=== PATIENT | female | born 1950 | race Caucasian/White ===

== ENCOUNTER 2020-07-14 11:31 | Inpatient (IN) | payer OTHER, MEDICARE ==
[2020-07-14] MEDS ORDERED: Albuterol/Ipratropium 3.0-0.5 MG/3 ML Neb Soln INH PRN (15:49)
[2020-07-14] MEDS ORDERED: Albuterol 8 GM Inhaler INH PRN (16:04)
[2020-07-14] MEDS: Carvedilol 12.5 MG Tab PO SCH (18:10)
--- NOTE | 2020-07-14 19:33 | HP ---
HISTORY OF PRESENT ILLNESS: Meryl is a pleasant 69-year-old female who has been hospitalized at [facility] in [place], [place] since 05/24/2020. She was discharged today for further rehabilitation in swing bed care. The patient has had quite a complicated course of illness. She was admitted and brought to the ER due to severely low oxygen saturations. She was recently exposed to COVID prior to her admission and tested positive for five days before that. She called EMS due to increasing shortness of breath. Initially, her oxygen saturation was in the 30s per EMS, but improved to the 70 range with a 15 L nonrebreather mask. She was diaphoretic and in respiratory distress on arrival to the emergency room. She reported a cough and dyspnea, but denied any chest pain. She was placed on BiPAP. She has one brother in [place] who was COVID positive and required ventilation, and she had another brother who 10 days prior to her admission of COVID. Some records are available for review and I will do my best to piece them together. The patient had acute hypoxemic respiratory failure secondary to COVID-19 pneumonia in combination with bacterial pneumonia. She also sustained a non-STEMI. She had an echocardiogram on 05/31/2020, which showed moderate to severely reduced left ventricular systolic function with an ejection fraction of 30%. She had severe hypokinesis of the anterior, anteroseptal, anterolateral, and apical wall. The echo findings were consistent with grade 3 or 4 diastolic dysfunction and an E:E prime ratio of greater than 15, consistent with elevated left heart filling pressures. She was treated with aspirin and Plavix and was placed on a heparin drip. So, she was diagnosed also with acute cardiomyopathy. She does have a history of hypertension, hyperlipidemia. She was found to be anemic on the date of admission with a hemoglobin of 7.8. She had an upper GI endoscopy due to a past history of gastric ulcers and was found to have multiple antral ulcers. She did have a repeat EGD in October and found to have a persistent antral ulcer. Apparently, her hemoglobin was stable on admission. The low hemoglobin of 7.8 was actually on 06/23/2020. Due to her COVID pneumonia and acute hypoxemic respiratory failure, she did qualify for remdesivir. I am unclear according to her medical records if she was treated with steroids. When I walked into the room today, the patient is on oxygen therapy. She does seem to be somewhat short of breath, however, she describes it as being much better than it was in the past. For her COVID pneumonia with superimposed bacterial pneumonia, she does use albuterol per nebulizer. She has a p.r.n. benzonatate for cough. She also receives DuoNeb as needed. She has gastroesophageal reflux disease with history of gastric ulcer and is taking omeprazole. She is on a multivitamin. She does have hypertension and is taking losartan in addition to hydrochlorothiazide. She has iron-deficiency anemia and is taking ferrous sulfate. She also has vitamin B12 deficiency and is receiving oral vitamin B12 supplementation. She has vitamin D deficiency and is taking calcium with vitamin D and additional vitamin D supplement. She is also taking ascorbic acid. She has been on enoxaparin for DVT prophylaxis. She is also on clopidogrel. For her cardiomyopathy, she is on carvedilol. She has hypercholesterolemia and is taking atorvastatin. She is on a daily aspirin regimen. REVIEW OF SYSTEMS: She denies any recent fever, headache, visual disturbances, ear pain, sore throat, chest pain, or palpitations. She does admit to having shortness of breath, which has greatly improved from the past. No abdominal pain, nausea, vomiting, diarrhea, or constipation. 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 No other orthopedic issues. PHYSICAL EXAMINATION: VITAL SIGNS: She is afebrile. Temp is 98.8, pulse is 99, respirations 22, blood pressure 99/67, O2 saturation is 87% to 92% on 7 L of oxygen per nasal cannula. SKIN: Warm and dry to touch. HEENT: Normal. CARDIAC: Reveals S1, S2 to be normal. Rate and rhythm are regular. No murmur, click, or gallop is auscultated. LUNGS: Clear without any rales, wheezes, or rhonchi. ABDOMEN: Soft, nontender. Bowel sounds present in all four quadrants. 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 IMPRESSION/PLAN: 1. Weakness secondary to coronavirus disease pneumonia an extended hospital stay and then a secondary bacterial pneumonia. She is being admitted today to receive physical therapy with an ultimate goal of returning home. 2. Non-ST elevation myocardial infarction with cardiomyopathy. She will continue on carvedilol. 3. Hypercholesterolemia, on statin. 4. DVT prophylaxis with some concern initially on her hospital admission for pulmonary embolism, which was ruled out, but she is on enoxaparin as well as clopidogrel and aspirin. 5. Shortness of breath. She is receiving albuterol as well as DuoNeb and benzonatate for cough. 6. She has hypertension and is taking losartan as well as hydrochlorothiazide. She is on multiple oral supplements including vitamin B12, vitamin C, vitamin D and calcium. We will continue these. She will continue on omeprazole for GI protection. PT has been consulted and will work with her to hopefully get her strong enough to return home to independent living. /[id number]/MODL
[2020-07-14] MEDS: Enoxaparin 40 MG/0.4 ML Syringe SUBCUT SCH (21:32)
[2020-07-14] MEDS: atorvaSTATin 40 MG Tab PO SCH (21:33)
[2020-07-14] MEDS: Chondroitin/Glucosamine Cap PO SCH (21:33)
[2020-07-14] MEDS: Benzonatate 100 MG Cap PO SCH (21:33)
[2020-07-15] MEDS: Cholecalciferol (Vitamin D3) 25 MCG Tab PO SCH (08:32)
[2020-07-15] MEDS: Hydrochlorothiazide 12.5 MG Cap PO SCH (08:32)
[2020-07-15] MEDS: Calcium Carbonate 600 MG Tab PO SCH (08:32)
[2020-07-15] MEDS: Ferrous Sulfate 325 MG Tab PO SCH (08:33)
[2020-07-15] MEDS: Chondroitin/Glucosamine Cap PO SCH ×2 (08:33→20:53)
[2020-07-15] MEDS: Multivitamins with Minerals/Iron/Folic Acid/Lycopene Tab PO SCH (08:33)
[2020-07-15] MEDS: Carvedilol 12.5 MG Tab PO SCH ×2 (08:33→17:12)
[2020-07-15] MEDS: Ascorbic Acid 500 MG Tab PO SCH (08:33)
[2020-07-15] MEDS: Benzonatate 100 MG Cap PO SCH ×2 (08:34→20:53)
[2020-07-15] MEDS: Clopidogrel 75 MG Tab PO SCH (08:34)
[2020-07-15] MEDS: Losartan 25 MG Tab PO SCH (08:34)
[2020-07-15] MEDS: Aspirin 81 MG Tab.EC PO SCH (08:34)
[2020-07-15] MEDS: Enoxaparin 40 MG/0.4 ML Syringe SUBCUT SCH ×2 (08:35→20:53)
[2020-07-15] MEDS: Omeprazole 20 MG Cap.CR PO SCH (08:42)
[2020-07-15] MEDS: Cyanocobalamin (Vitamin B12) 500 MCG Tab PO SCH (08:43)
[2020-07-15] MEDS ORDERED: Omeprazole 20 MG Cap.CR PO SCH (09:00)
[2020-07-15] MEDS: atorvaSTATin 40 MG Tab PO SCH (20:53)
[2020-07-16] MEDS: Omeprazole 20 MG Cap.CR PO SCH ×2 (06:01→06:30)
[2020-07-16] MEDS: Chondroitin/Glucosamine Cap PO SCH ×2 (09:01→20:43)
[2020-07-16] MEDS: Clopidogrel 75 MG Tab PO SCH (09:02)
[2020-07-16] MEDS: Cholecalciferol (Vitamin D3) 25 MCG Tab PO SCH (09:02)
[2020-07-16] MEDS: Aspirin 81 MG Tab.EC PO SCH (09:02)
[2020-07-16] MEDS: Hydrochlorothiazide 12.5 MG Cap PO SCH (09:02)
[2020-07-16] MEDS: Carvedilol 12.5 MG Tab PO SCH ×2 (09:02→17:57)
[2020-07-16] MEDS: Multivitamins with Minerals/Iron/Folic Acid/Lycopene Tab PO SCH (09:02)
[2020-07-16] MEDS: Benzonatate 100 MG Cap PO SCH ×2 (09:02→20:43)
[2020-07-16] MEDS: Losartan 25 MG Tab PO SCH (09:03)
[2020-07-16] MEDS: Calcium Carbonate 600 MG Tab PO SCH (09:03)
[2020-07-16] MEDS: Ferrous Sulfate 325 MG Tab PO SCH (09:03)
[2020-07-16] MEDS: Ascorbic Acid 500 MG Tab PO SCH (09:03)
[2020-07-16] MEDS: Cyanocobalamin (Vitamin B12) 500 MCG Tab PO SCH (09:03)
[2020-07-16] MEDS: Enoxaparin 40 MG/0.4 ML Syringe SUBCUT SCH ×2 (09:03→20:43)
[2020-07-16] MEDS: atorvaSTATin 40 MG Tab PO SCH (20:43)
[2020-07-17] MEDS: Omeprazole 20 MG Cap.CR PO SCH ×2 (06:24→06:29)
[2020-07-17] MEDS: Enoxaparin 40 MG/0.4 ML Syringe SUBCUT SCH ×2 (08:59→21:15)
[2020-07-17] MEDS: Benzonatate 100 MG Cap PO SCH ×2 (08:59→21:15)
[2020-07-17] MEDS: Carvedilol 12.5 MG Tab PO SCH ×2 (08:59→17:43)
[2020-07-17] MEDS: Chondroitin/Glucosamine Cap PO SCH ×2 (09:00→21:15)
[2020-07-17] MEDS: Clopidogrel 75 MG Tab PO SCH (09:00)
[2020-07-17] MEDS: Multivitamins with Minerals/Iron/Folic Acid/Lycopene Tab PO SCH (09:00)
[2020-07-17] MEDS: Cyanocobalamin (Vitamin B12) 500 MCG Tab PO SCH (09:00)
[2020-07-17] MEDS: Ferrous Sulfate 325 MG Tab PO SCH (09:00)
[2020-07-17] MEDS: Ascorbic Acid 500 MG Tab PO SCH (09:00)
[2020-07-17] MEDS: Aspirin 81 MG Tab.EC PO SCH (09:00)
[2020-07-17] MEDS: Hydrochlorothiazide 12.5 MG Cap PO SCH (09:00)
[2020-07-17] MEDS: Calcium Carbonate 600 MG Tab PO SCH (09:01)
[2020-07-17] MEDS: Losartan 25 MG Tab PO SCH (09:01)
[2020-07-17] MEDS: Cholecalciferol (Vitamin D3) 25 MCG Tab PO SCH (09:01)
[2020-07-17] MEDS: atorvaSTATin 40 MG Tab PO SCH (21:15)
[2020-07-18] MEDS: Omeprazole 20 MG Cap.CR PO SCH (06:35)
[2020-07-18] MEDS: Chondroitin/Glucosamine Cap PO SCH ×2 (08:27→20:24)
[2020-07-18] MEDS: Hydrochlorothiazide 12.5 MG Cap PO SCH (08:27)
[2020-07-18] MEDS: Losartan 25 MG Tab PO SCH (08:28)
[2020-07-18] MEDS: Calcium Carbonate 600 MG Tab PO SCH (08:31)
[2020-07-18] MEDS: Multivitamins with Minerals/Iron/Folic Acid/Lycopene Tab PO SCH (08:31)
[2020-07-18] MEDS: Carvedilol 12.5 MG Tab PO SCH ×2 (08:31→18:18)
[2020-07-18] MEDS: Cholecalciferol (Vitamin D3) 25 MCG Tab PO SCH (08:33)
[2020-07-18] MEDS: Ascorbic Acid 500 MG Tab PO SCH (08:33)
[2020-07-18] MEDS: Ferrous Sulfate 325 MG Tab PO SCH (08:33)
[2020-07-18] MEDS: Aspirin 81 MG Tab.EC PO SCH (08:33)
[2020-07-18] MEDS: Cyanocobalamin (Vitamin B12) 500 MCG Tab PO SCH (08:33)
[2020-07-18] MEDS: Enoxaparin 40 MG/0.4 ML Syringe SUBCUT SCH ×2 (08:34→20:24)
[2020-07-18] MEDS: Clopidogrel 75 MG Tab PO SCH (08:34)
[2020-07-18] MEDS: Benzonatate 100 MG Cap PO SCH ×2 (08:34→20:23)
--- NOTE | 2020-07-18 11:42 | PCM.PN ---
- General Info Date of Service: 07/18/20 Admission Dx/Problem (Free Text): Deconditioning s/p COVID pneumonia with acute hypoxemic respiratory failure. - Review of Systems Systems Review Comment:: Meryl is seen today on swingbed rounds. She was admitted on 07/14/2020 from [facility] after a prolonged hospital stay secondary to acute hypoxemic respiratory failure secondary to COVID pneumonia with a super imposed bacterial pneumonia. She had no O2 requirement prior to COVID and is currently on 6 L to maintain sats in the 90's. She is here for rehabilitation. She resides in [place], [place] and her PCP is through the [facility]. Today she has no questions or concerns. She gets winded easily when doing any sort of activity. She does, however, feel she is doing much better overall. Unfortunately she had 2 brothers who also developed COVID pneumonia and they b oth from it. - Patient Data Vitals - Most Recent: Last Vital Signs Temp 97.4 F 07/18/20 08:36 Pulse 94 07/18/20 08:36 Resp 22 H 07/18/20 08:36 BP 109/73 07/18/20 08:36 Pulse Ox 97 07/18/20 08:36 Weight - Most Recent: 173 lb 8 oz I&O - Last 24 Hours: Intake & Output 07/17/20 07/18/20 07/18/20 22:59 06:59 14:59 Intake Total 200 150 Balance 200 150 Med Orders - Current: Current Medications Albuterol (Ventolin Hfa) 0 gm INH Q4H PRN PRN Reason: Shortness of Breath Albuterol/Ipratropium (Duoneb 3.0-0.5 Mg/3 Ml) 3 ml INH Q6H PRN PRN Reason: Shortness of Breath Ascorbic Acid (Vitamin C) 500 mg PO DAILY [facility] Last Admin: 07/18/20 08:33 Dose: 500 mg Documented by: Aspirin (Halfprin) 81 mg PO DAILY [facility] Last Admin: 07/18/20 08:33 Dose: 81 mg Documented by: Atorvastatin Calcium (Lipitor) 40 mg PO BEDTIME [facility] Last Admin: 07/17/20 21:15 Dose: 40 mg Documented by: Benzonatate (Tessalon Perles) 100 mg PO BID [facility] Last Admin: 07/18/20 08:34 Dose: 100 mg Documented by: Calcium Carbonate/Glycine (Calcium Carbonate) 600 mg PO DAILY [facility] Last Admin: 07/18/20 08:31 Dose: 600 mg Documented by: Carvedilol (Coreg) 12.5 mg PO BIDMEALS [facility] Last Admin: 07/18/20 08:31 Dose: 12.5 mg Documented by: Cholecalciferol (Vitamin D3) 50 mcg PO DAILY [facility] Last Admin: 07/18/20 08:33 Dose: 50 mcg Documented by: Clopidogrel Bisulfate (Plavix) 75 mg PO DAILY [facility] Last Admin: 07/18/20 08:34 Dose: 75 mg Documented by: Cyanocobalamin (Vitamin B12) 500 mcg PO DAILY [facility] Last Admin: 07/18/20 08:33 Dose: 500 mcg Documented by: Enoxaparin Sodium (Lovenox) 40 mg SUBCUT BID [facility] Last Admin: 07/18/20 08:34 Dose: 40 mg Documented by: Ferrous Sulfate (Ferrous Sulfate) 325 mg PO DAILY [facility] Last Admin: 07/18/20 08:33 Dose: 325 mg Documented by: Glucosamine/Chondroitin (Glucosamine-Chondroitin 500-400 Capsule) 1 cap PO BID [facility] Last Admin: 07/18/20 08:27 Dose: 1 cap Documented by: Hydrochlorothiazide (Hydrochlorothiazide) 12.5 mg PO DAILY [facility] Last Admin: 07/18/20 08:27 Dose: 12.5 mg Documented by: Losartan Potassium (Cozaar) 12.5 mg PO DAILY [facility] Last Admin: 07/18/20 08:28 Dose: 12.5 mg Documented by: Multivitamins/Minerals (Centrum) 1 tab PO DAILY [facility] Last Admin: 07/18/20 08:31 Dose: 1 tab Documented by: Omeprazole (Omeprazole) 40 mg PO ACBREAKFAST [facility] Last Admin: 07/18/20 06:35 Dose: 40 mg Documented by: Discontinued Medications Omeprazole (Omeprazole) 40 mg PO DAILY [facility] - Exam Quality Assessment: Supplemental Oxygen General: Alert, Oriented, Cooperative, No Acute Distress Lungs: Wheezing (End expiratory wheezing.) Cardiovascular: Regular Rate, Regular Rhythm, No Murmurs Sepsis Event Note - Evaluation Sepsis Screening Result: Sepsis Risk - Focused Exam Vital Signs: Vital Signs Temp Pulse Pulse Resp BP BP Pulse Ox 07/18/20 08:36 97.4 F 94 22 H 109/73 97 07/18/20 08:31 94 109/73 07/18/20 08:28 109/ - Problem List Review Problem List Initiated/Reviewed/Updated: Yes - My Orders Last 24 Hours: My Active Orders 07/21/20 08:00 Echo Comp wo Cont [US] Routine - Assessment Assessment:: Hospital Problems: Weakness/deconditioning secondary to COVID 19 pneumonia. - Continue PT Hypoxemia - O2 to maintain sats >90%. Currently at 6L via [place] - Albuterol inhaler q 4 hours PRN SOB - Duonebs q 6 hours PRN SOB HFrEF with cardiomyopathy, felt to be secondary to COVID, EF 30%, Grade 3/4 diastolic dysfunction - Outpatient cardiac cath recommended at discharge from [place] - ECHO 05/31/2020 at [facility] NSTEMI Type 1 - ASA 81 mg PO daily - Clopidogrel 75 mg PO daily HTN - Carvediolol 12.5 mg PO BID - HCTZ 12.5 mg PO daily - Losartan 12.5 mg PO daily Hyperlipidemia - Atorvastatin 40 mg PO daily Hx of anemia secondary to gastric ulcer - Omeprazole 40 mg PO daily AM Moderate malnutrition - Regular diet as tolerated Nutritional supplements - Vit C 500 mg PO daily - Glucosamine/Chondriotin 1 cap PO BID - Calcium carbonate 600 mg PO daily - Vit B12 500 mcg PO daily DVT PPX: Enoxaparin 40 mg Subcut BID (dosing per [place] discharge) CODE STATUS: Full code with trial of intubation x 2 weeks per advanced directive
[2020-07-18] MEDS: atorvaSTATin 40 MG Tab PO SCH (20:24)
[2020-07-19] MEDS: Omeprazole 20 MG Cap.CR PO SCH (07:26)
[2020-07-19] MEDS: Carvedilol 12.5 MG Tab PO SCH ×2 (07:55→17:37)
[2020-07-19] MEDS: Cyanocobalamin (Vitamin B12) 500 MCG Tab PO SCH (08:02)
[2020-07-19] MEDS: Benzonatate 100 MG Cap PO SCH ×2 (08:02→20:30)
[2020-07-19] MEDS: Losartan 25 MG Tab PO SCH (08:02)
[2020-07-19] MEDS: Aspirin 81 MG Tab.EC PO SCH (08:03)
[2020-07-19] MEDS: Chondroitin/Glucosamine Cap PO SCH ×2 (08:03→20:30)
[2020-07-19] MEDS: Calcium Carbonate 600 MG Tab PO SCH (08:04)
[2020-07-19] MEDS: Multivitamins with Minerals/Iron/Folic Acid/Lycopene Tab PO SCH (08:04)
[2020-07-19] MEDS: Cholecalciferol (Vitamin D3) 25 MCG Tab PO SCH (08:04)
[2020-07-19] MEDS: Clopidogrel 75 MG Tab PO SCH (08:04)
[2020-07-19] MEDS: Hydrochlorothiazide 12.5 MG Cap PO SCH (08:04)
[2020-07-19] MEDS: Ascorbic Acid 500 MG Tab PO SCH (08:04)
[2020-07-19] MEDS: Ferrous Sulfate 325 MG Tab PO SCH (08:04)
[2020-07-19] MEDS: Enoxaparin 40 MG/0.4 ML Syringe SUBCUT SCH ×2 (08:04→20:31)
[2020-07-19] MEDS: atorvaSTATin 40 MG Tab PO SCH (20:30)
[2020-07-20] MEDS: Omeprazole 20 MG Cap.CR PO SCH (07:53)
[2020-07-20] MEDS: Carvedilol 12.5 MG Tab PO SCH ×2 (07:55→18:44)
[2020-07-20] MEDS: Hydrochlorothiazide 12.5 MG Cap PO SCH (08:06)
[2020-07-20] MEDS: Chondroitin/Glucosamine Cap PO SCH ×2 (08:06→20:54)
[2020-07-20] MEDS: Losartan 25 MG Tab PO SCH (08:06)
[2020-07-20] MEDS: Aspirin 81 MG Tab.EC PO SCH (08:07)
[2020-07-20] MEDS: Cholecalciferol (Vitamin D3) 25 MCG Tab PO SCH (08:07)
[2020-07-20] MEDS: Cyanocobalamin (Vitamin B12) 500 MCG Tab PO SCH (08:07)
[2020-07-20] MEDS: Calcium Carbonate 600 MG Tab PO SCH (08:07)
[2020-07-20] MEDS: Multivitamins with Minerals/Iron/Folic Acid/Lycopene Tab PO SCH (08:07)
[2020-07-20] MEDS: Benzonatate 100 MG Cap PO SCH ×2 (08:08→20:54)
[2020-07-20] MEDS: Ferrous Sulfate 325 MG Tab PO SCH (08:08)
[2020-07-20] MEDS: Clopidogrel 75 MG Tab PO SCH (08:08)
[2020-07-20] MEDS: Enoxaparin 40 MG/0.4 ML Syringe SUBCUT SCH ×2 (08:08→20:56)
[2020-07-20] MEDS: Ascorbic Acid 500 MG Tab PO SCH (08:08)
[2020-07-20] MEDS: atorvaSTATin 40 MG Tab PO SCH (20:54)
[2020-07-21] MEDS: Omeprazole 20 MG Cap.CR PO SCH (06:36)
[2020-07-21] MEDS: Carvedilol 12.5 MG Tab PO SCH ×2 (08:42→18:16)
[2020-07-21] MEDS: Ferrous Sulfate 325 MG Tab PO SCH (08:43)
[2020-07-21] MEDS: Losartan 25 MG Tab PO SCH (08:43)
[2020-07-21] MEDS: Ascorbic Acid 500 MG Tab PO SCH (08:44)
[2020-07-21] MEDS: Clopidogrel 75 MG Tab PO SCH (08:44)
[2020-07-21] MEDS: Hydrochlorothiazide 12.5 MG Cap PO SCH (08:44)
[2020-07-21] MEDS: Cholecalciferol (Vitamin D3) 25 MCG Tab PO SCH (08:47)
[2020-07-21] MEDS: Multivitamins with Minerals/Iron/Folic Acid/Lycopene Tab PO SCH (08:47)
[2020-07-21] MEDS: Chondroitin/Glucosamine Cap PO SCH ×2 (08:48→20:28)
[2020-07-21] MEDS: Calcium Carbonate 600 MG Tab PO SCH (08:48)
[2020-07-21] MEDS: Benzonatate 100 MG Cap PO SCH ×2 (08:48→20:28)
[2020-07-21] MEDS: Cyanocobalamin (Vitamin B12) 500 MCG Tab PO SCH (08:50)
[2020-07-21] MEDS: Aspirin 81 MG Tab.EC PO SCH (08:50)
[2020-07-21] MEDS: Enoxaparin 40 MG/0.4 ML Syringe SUBCUT SCH ×2 (08:52→20:28)
[2020-07-21] MEDS: atorvaSTATin 40 MG Tab PO SCH (20:28)
[2020-07-22] MEDS: Chondroitin/Glucosamine Cap PO SCH ×2 (08:16→20:41)
[2020-07-22] MEDS: Benzonatate 100 MG Cap PO SCH ×2 (08:18→20:41)
[2020-07-22] MEDS: Ascorbic Acid 500 MG Tab PO SCH (08:18)
[2020-07-22] MEDS: Clopidogrel 75 MG Tab PO SCH (08:18)
[2020-07-22] MEDS: Aspirin 81 MG Tab.EC PO SCH (08:18)
[2020-07-22] MEDS: Omeprazole 20 MG Cap.CR PO SCH (08:18)
[2020-07-22] MEDS: Cholecalciferol (Vitamin D3) 25 MCG Tab PO SCH (08:18)
[2020-07-22] MEDS: Hydrochlorothiazide 12.5 MG Cap PO SCH (08:18)
[2020-07-22] MEDS: Ferrous Sulfate 325 MG Tab PO SCH (08:18)
[2020-07-22] MEDS: Cyanocobalamin (Vitamin B12) 500 MCG Tab PO SCH (08:19)
[2020-07-22] MEDS: Calcium Carbonate 600 MG Tab PO SCH (08:19)
[2020-07-22] MEDS: Multivitamins with Minerals/Iron/Folic Acid/Lycopene Tab PO SCH (08:19)
[2020-07-22] MEDS: Losartan 25 MG Tab PO SCH (08:22)
[2020-07-22] MEDS: Carvedilol 12.5 MG Tab PO SCH ×2 (08:25→18:17)
[2020-07-22] MEDS: Enoxaparin 40 MG/0.4 ML Syringe SUBCUT SCH ×2 (08:26→20:41)
[2020-07-22] MEDS: atorvaSTATin 40 MG Tab PO SCH (20:41)
[2020-07-23] MEDS: Omeprazole 20 MG Cap.CR PO SCH ×2 (06:25→06:32)
[2020-07-23] MEDS: Carvedilol 12.5 MG Tab PO SCH ×2 (07:35→18:29)
[2020-07-23] MEDS: Hydrochlorothiazide 12.5 MG Cap PO SCH (09:32)
[2020-07-23] MEDS: Cholecalciferol (Vitamin D3) 25 MCG Tab PO SCH (09:33)
[2020-07-23] MEDS: Cyanocobalamin (Vitamin B12) 500 MCG Tab PO SCH (09:33)
[2020-07-23] MEDS: Ascorbic Acid 500 MG Tab PO SCH (09:33)
[2020-07-23] MEDS: Chondroitin/Glucosamine Cap PO SCH ×2 (09:33→20:58)
[2020-07-23] MEDS: Losartan 25 MG Tab PO SCH (09:33)
[2020-07-23] MEDS: Calcium Carbonate 600 MG Tab PO SCH (09:33)
[2020-07-23] MEDS: Multivitamins with Minerals/Iron/Folic Acid/Lycopene Tab PO SCH (09:33)
[2020-07-23] MEDS: Aspirin 81 MG Tab.EC PO SCH (09:34)
[2020-07-23] MEDS: Clopidogrel 75 MG Tab PO SCH (09:34)
[2020-07-23] MEDS: Ferrous Sulfate 325 MG Tab PO SCH (09:34)
[2020-07-23] MEDS: Benzonatate 100 MG Cap PO SCH ×2 (09:34→20:59)
[2020-07-23] MEDS: Enoxaparin 40 MG/0.4 ML Syringe SUBCUT SCH ×2 (09:34→20:59)
[2020-07-23] MEDS: atorvaSTATin 40 MG Tab PO SCH (20:59)
[2020-07-24] MEDS: Omeprazole 20 MG Cap.CR PO SCH (07:57)
[2020-07-24] MEDS: Carvedilol 12.5 MG Tab PO SCH ×2 (07:58→18:11)
[2020-07-24] MEDS: Ascorbic Acid 500 MG Tab PO SCH (08:34)
[2020-07-24] MEDS: Cholecalciferol (Vitamin D3) 25 MCG Tab PO SCH (08:34)
[2020-07-24] MEDS: Hydrochlorothiazide 12.5 MG Cap PO SCH (08:34)
[2020-07-24] MEDS: Aspirin 81 MG Tab.EC PO SCH (08:34)
[2020-07-24] MEDS: Enoxaparin 40 MG/0.4 ML Syringe SUBCUT SCH ×2 (08:34→20:37)
[2020-07-24] MEDS: Clopidogrel 75 MG Tab PO SCH (08:34)
[2020-07-24] MEDS: Chondroitin/Glucosamine Cap PO SCH ×2 (08:34→20:37)
[2020-07-24] MEDS: Calcium Carbonate 600 MG Tab PO SCH (08:34)
[2020-07-24] MEDS: Benzonatate 100 MG Cap PO SCH ×2 (08:34→20:37)
[2020-07-24] MEDS: Cyanocobalamin (Vitamin B12) 500 MCG Tab PO SCH (08:34)
[2020-07-24] MEDS: Ferrous Sulfate 325 MG Tab PO SCH (08:34)
[2020-07-24] MEDS: Multivitamins with Minerals/Iron/Folic Acid/Lycopene Tab PO SCH (08:36)
[2020-07-24] MEDS: Losartan 25 MG Tab PO SCH (08:36)
[2020-07-24] MEDS: atorvaSTATin 40 MG Tab PO SCH (20:37)
[2020-07-25] MEDS: Omeprazole 20 MG Cap.CR PO SCH (07:10)
[2020-07-25] MEDS: Calcium Carbonate 600 MG Tab PO SCH (08:06)
[2020-07-25] MEDS: Carvedilol 12.5 MG Tab PO SCH ×2 (08:06→18:16)
[2020-07-25] MEDS: Ferrous Sulfate 325 MG Tab PO SCH (08:07)
[2020-07-25] MEDS: Clopidogrel 75 MG Tab PO SCH (08:07)
[2020-07-25] MEDS: Multivitamins with Minerals/Iron/Folic Acid/Lycopene Tab PO SCH (08:09)
[2020-07-25] MEDS: Ascorbic Acid 500 MG Tab PO SCH (08:10)
[2020-07-25] MEDS: Cholecalciferol (Vitamin D3) 25 MCG Tab PO SCH (08:10)
[2020-07-25] MEDS: Benzonatate 100 MG Cap PO SCH ×2 (08:10→20:42)
[2020-07-25] MEDS: Losartan 25 MG Tab PO SCH (08:12)
[2020-07-25] MEDS: Cyanocobalamin (Vitamin B12) 500 MCG Tab PO SCH (08:13)
[2020-07-25] MEDS: Hydrochlorothiazide 12.5 MG Cap PO SCH (08:14)
[2020-07-25] MEDS: Aspirin 81 MG Tab.EC PO SCH (08:15)
[2020-07-25] MEDS: Enoxaparin 40 MG/0.4 ML Syringe SUBCUT SCH ×2 (08:15→20:42)
[2020-07-25] MEDS: Chondroitin/Glucosamine Cap PO SCH ×2 (08:15→20:42)
--- NOTE | 2020-07-25 09:20 | PCM.PN ---
- General Info Date of Service: 07/25/20 Admission Dx/Problem (Free Text): Deconditioning s/p COVID pneumonia with acute hypoxemic respiratory failure. - Review of Systems Systems Review Comment:: Meryl is seen today on swingbed rounds. She feels she is slowly improving. Oxygen has been reduced from 7L to 5L via [place] over the past week. Millie was able to have visitors on 07/22 and 07/23 and she really enjoyed their company. Meryl also plays the piano and codetag and a portable keyboard has been set up in her room and she has some copies of [employer] that she has been playing. She notes no questions or concerns today. She has been stooling normally. No issues with voiding. - Patient Data Vitals - Most Recent: Last Vital Signs Temp 96.6 F L 07/25/20 08:43 Pulse 94 07/25/20 08:43 Resp 20 07/25/20 08:43 BP 123/86 07/25/20 08:43 Pulse Ox 91 L 07/25/20 08:43 Weight - Most Recent: 175 lb I&O - Last 24 Hours: Intake & Output 07/24/20 07/25/20 07/25/20 22:59 06:59 14:59 Intake Total 480 200 Balance 480 200 Med Orders - Current: Current Medications Albuterol (Ventolin Hfa) 0 gm INH Q4H PRN PRN Reason: Shortness of Breath Albuterol/Ipratropium (Duoneb 3.0-0.5 Mg/3 Ml) 3 ml INH Q6H PRN PRN Reason: Shortness of Breath Ascorbic Acid (Vitamin C) 500 mg PO DAILY [facility] Last Admin: 07/25/20 08:10 Dose: 500 mg Documented by: Aspirin (Halfprin) 81 mg PO DAILY [facility] Last Admin: 07/25/20 08:15 Dose: 81 mg Documented by: Atorvastatin Calcium (Lipitor) 40 mg PO BEDTIME [facility] Last Admin: 07/24/20 20:37 Dose: 40 mg Documented by: Benzonatate (Tessalon Perles) 100 mg PO BID [facility] Last Admin: 07/25/20 08:10 Dose: 100 mg Documented by: Calcium Carbonate/Glycine (Calcium Carbonate) 600 mg PO DAILY [facility] Last Admin: 07/25/20 08:06 Dose: 600 mg Documented by: Carvedilol (Coreg) 12.5 mg PO BIDMEALS [facility] Last Admin: 07/25/20 08:06 Dose: 12.5 mg Documented by: Cholecalciferol (Vitamin D3) 50 mcg PO DAILY [facility] Last Admin: 07/25/20 08:10 Dose: 50 mcg Documented by: Clopidogrel Bisulfate (Plavix) 75 mg PO DAILY [facility] Last Admin: 07/25/20 08:07 Dose: 75 mg Documented by: Cyanocobalamin (Vitamin B12) 500 mcg PO DAILY [facility] Last Admin: 07/25/20 08:13 Dose: 500 mcg Documented by: Enoxaparin Sodium (Lovenox) 40 mg SUBCUT BID [facility] Last Admin: 07/25/20 08:15 Dose: 40 mg Documented by: Ferrous Sulfate (Ferrous Sulfate) 325 mg PO DAILY [facility] Last Admin: 07/25/20 08:07 Dose: 325 mg Documented by: Glucosamine/Chondroitin (Glucosamine-Chondroitin 500-400 Capsule) 1 cap PO BID [facility] Last Admin: 07/25/20 08:15 Dose: 1 cap Documented by: Hydrochlorothiazide (Hydrochlorothiazide) 12.5 mg PO DAILY [facility] Last Admin: 07/25/20 08:14 Dose: 12.5 mg Documented by: Losartan Potassium (Cozaar) 12.5 mg PO DAILY [facility] Last Admin: 07/25/20 08:12 Dose: 12.5 mg Documented by: Multivitamins/Minerals (Centrum) 1 tab PO DAILY [facility] Last Admin: 07/25/20 08:09 Dose: 1 tab Documented by: Omeprazole (Omeprazole) 40 mg PO ACBREAKFAST [facility] Last Admin: 07/25/20 07:10 Dose: 40 mg Documented by: Sodium Chloride ([place] Nasal [place]) 0 ml [place]ARR[place] Q4H PRN PRN Reason: nasal congestion Discontinued Medications Omeprazole (Omeprazole) 40 mg PO DAILY [facility] - Exam Quality Assessment: Supplemental Oxygen General: Alert, Oriented, Cooperative, No Acute Distress Lungs: Clear to Auscultation Cardiovascular: Regular Rate, Regular Rhythm, No Murmurs Extremities: No Pedal Edema Sepsis Event Note - Evaluation Sepsis Screening Result: No Definite Risk - Focused Exam Vital Signs: Vital Signs Temp Pulse Pulse Resp BP BP Pulse Ox 07/25/20 08:43 96.6 F L 94 20 123/86 91 L 07/25/20 08:12 123/86 07/25/20 08:06 94 123/86 - Problem List Review Problem List Initiated/Reviewed/Updated: Yes - My Orders Last 24 Hours: My Active Orders 07/24/20 10:55 Sodium Chloride 0.65% [[place] Nasal [place]] 0 ml LARRY Q4H PRN - Assessment Assessment:: Hospital Problems: Weakness/deconditioning secondary to COVID 19 pneumonia. - Continue PT Hypoxemia - O2 to maintain sats >90%. Currently at 5L via [place] - Albuterol inhaler q 4 hours PRN SOB - Duonebs q 6 hours PRN SOB HFrEF with cardiomyopathy, felt to be secondary to COVID, EF 30%, Grade 3/4 diastolic dysfunction - Outpatient cardiac cath recommended at discharge from [place] - ECHO 05/31/2020 at [facility] NSTEMI Type 1 - ASA 81 mg PO daily - Clopidogrel 75 mg PO daily HTN - Carvedilol 12.5 mg PO BID - HCTZ 12.5 mg PO daily - Losartan 12.5 mg PO daily Hyperlipidemia - Atorvastatin 40 mg PO daily Hx of anemia secondary to gastric ulcer - Omeprazole 40 mg PO daily AM Moderate malnutrition - Regular diet as tolerated Nutritional supplements - Vit C 500 mg PO daily - Glucosamine/Chondriotin 1 cap PO BID - Calcium carbonate 600 mg PO daily - Vit B12 500 mcg PO daily DVT PPX: Enoxaparin 40 mg Subcut BID (dosing per [place] discharge) CODE STATUS: Full code with trial of intubation x 2 weeks per advanced directive
[2020-07-25] MEDS: atorvaSTATin 40 MG Tab PO SCH (20:42)
[2020-07-26] MEDS: Omeprazole 20 MG Cap.CR PO SCH (07:38)
[2020-07-26] MEDS: Carvedilol 12.5 MG Tab PO SCH ×2 (07:39→18:19)
[2020-07-26] MEDS: Chondroitin/Glucosamine Cap PO SCH ×2 (08:24→21:05)
[2020-07-26] MEDS: Ferrous Sulfate 325 MG Tab PO SCH (08:25)
[2020-07-26] MEDS: Multivitamins with Minerals/Iron/Folic Acid/Lycopene Tab PO SCH (08:25)
[2020-07-26] MEDS: Aspirin 81 MG Tab.EC PO SCH (08:25)
[2020-07-26] MEDS: Ascorbic Acid 500 MG Tab PO SCH (08:25)
[2020-07-26] MEDS: Cyanocobalamin (Vitamin B12) 500 MCG Tab PO SCH (08:25)
[2020-07-26] MEDS: Cholecalciferol (Vitamin D3) 25 MCG Tab PO SCH (08:25)
[2020-07-26] MEDS: Clopidogrel 75 MG Tab PO SCH (08:25)
[2020-07-26] MEDS: Benzonatate 100 MG Cap PO SCH ×2 (08:25→21:05)
[2020-07-26] MEDS: Calcium Carbonate 600 MG Tab PO SCH (08:27)
[2020-07-26] MEDS: Enoxaparin 40 MG/0.4 ML Syringe SUBCUT SCH ×2 (08:29→21:05)
[2020-07-26] MEDS: Hydrochlorothiazide 12.5 MG Cap PO SCH (08:30)
[2020-07-26] MEDS: Losartan 25 MG Tab PO SCH (10:16)
[2020-07-26] MEDS: atorvaSTATin 40 MG Tab PO SCH (21:05)
[2020-07-27] MEDS: Omeprazole 20 MG Cap.CR PO SCH (07:25)
[2020-07-27] MEDS: Carvedilol 12.5 MG Tab PO SCH ×2 (07:26→18:12)
[2020-07-27] MEDS: Multivitamins with Minerals/Iron/Folic Acid/Lycopene Tab PO SCH (08:09)
[2020-07-27] MEDS: Cholecalciferol (Vitamin D3) 25 MCG Tab PO SCH (08:09)
[2020-07-27] MEDS: Ferrous Sulfate 325 MG Tab PO SCH (08:10)
[2020-07-27] MEDS: Ascorbic Acid 500 MG Tab PO SCH (08:10)
[2020-07-27] MEDS: Benzonatate 100 MG Cap PO SCH ×2 (08:10→20:58)
[2020-07-27] MEDS: Hydrochlorothiazide 12.5 MG Cap PO SCH (08:10)
[2020-07-27] MEDS: Cyanocobalamin (Vitamin B12) 500 MCG Tab PO SCH (08:11)
[2020-07-27] MEDS: Calcium Carbonate 600 MG Tab PO SCH (08:11)
[2020-07-27] MEDS: Losartan 25 MG Tab PO SCH (08:11)
[2020-07-27] MEDS: Aspirin 81 MG Tab.EC PO SCH (08:12)
[2020-07-27] MEDS: Clopidogrel 75 MG Tab PO SCH (08:12)
[2020-07-27] MEDS: Chondroitin/Glucosamine Cap PO SCH ×2 (08:12→20:58)
[2020-07-27] MEDS: Enoxaparin 40 MG/0.4 ML Syringe SUBCUT SCH ×2 (08:13→20:58)
[2020-07-27] MEDS: atorvaSTATin 40 MG Tab PO SCH (20:57)
[2020-07-28] MEDS: Omeprazole 20 MG Cap.CR PO SCH (07:34)
[2020-07-28] MEDS: Cholecalciferol (Vitamin D3) 25 MCG Tab PO SCH (08:26)
[2020-07-28] MEDS: Benzonatate 100 MG Cap PO SCH ×2 (08:27→20:53)
[2020-07-28] MEDS: Ferrous Sulfate 325 MG Tab PO SCH (08:27)
[2020-07-28] MEDS: Chondroitin/Glucosamine Cap PO SCH ×2 (08:28→20:53)
[2020-07-28] MEDS: Calcium Carbonate 600 MG Tab PO SCH (08:28)
[2020-07-28] MEDS: Carvedilol 12.5 MG Tab PO SCH ×2 (08:28→17:58)
[2020-07-28] MEDS: Hydrochlorothiazide 12.5 MG Cap PO SCH (08:29)
[2020-07-28] MEDS: Cyanocobalamin (Vitamin B12) 500 MCG Tab PO SCH (08:29)
[2020-07-28] MEDS: Multivitamins with Minerals/Iron/Folic Acid/Lycopene Tab PO SCH (08:29)
[2020-07-28] MEDS: Ascorbic Acid 500 MG Tab PO SCH (08:30)
[2020-07-28] MEDS: Aspirin 81 MG Tab.EC PO SCH (08:30)
[2020-07-28] MEDS: Clopidogrel 75 MG Tab PO SCH (08:30)
[2020-07-28] MEDS: Losartan 25 MG Tab PO SCH (08:31)
[2020-07-28] MEDS: Enoxaparin 40 MG/0.4 ML Syringe SUBCUT SCH ×2 (08:31→20:54)
[2020-07-28] MEDS: atorvaSTATin 40 MG Tab PO SCH (20:53)
[2020-07-29] MEDS: Omeprazole 20 MG Cap.CR PO SCH (08:22)
[2020-07-29] MEDS: Carvedilol 12.5 MG Tab PO SCH ×2 (08:22→18:03)
[2020-07-29] MEDS: Aspirin 81 MG Tab.EC PO SCH (08:23)
[2020-07-29] MEDS: Losartan 25 MG Tab PO SCH (08:24)
[2020-07-29] MEDS: Benzonatate 100 MG Cap PO SCH ×2 (08:24→20:29)
[2020-07-29] MEDS: Hydrochlorothiazide 12.5 MG Cap PO SCH (08:24)
[2020-07-29] MEDS: Ferrous Sulfate 325 MG Tab PO SCH (08:26)
[2020-07-29] MEDS: Cyanocobalamin (Vitamin B12) 500 MCG Tab PO SCH (08:26)
[2020-07-29] MEDS: Cholecalciferol (Vitamin D3) 25 MCG Tab PO SCH (08:26)
[2020-07-29] MEDS: Chondroitin/Glucosamine Cap PO SCH ×2 (08:27→20:29)
[2020-07-29] MEDS: Ascorbic Acid 500 MG Tab PO SCH (08:27)
[2020-07-29] MEDS: Calcium Carbonate 600 MG Tab PO SCH (08:27)
[2020-07-29] MEDS: Clopidogrel 75 MG Tab PO SCH (08:28)
[2020-07-29] MEDS: Multivitamins with Minerals/Iron/Folic Acid/Lycopene Tab PO SCH (08:28)
[2020-07-29] MEDS: Enoxaparin 40 MG/0.4 ML Syringe SUBCUT SCH ×2 (08:29→20:30)
[2020-07-29] MEDS: atorvaSTATin 40 MG Tab PO SCH (20:29)
[2020-07-30] MEDS: Omeprazole 20 MG Cap.CR PO SCH (07:40)
[2020-07-30] MEDS: Losartan 25 MG Tab PO SCH (08:48)
[2020-07-30] MEDS: Calcium Carbonate 600 MG Tab PO SCH (08:50)
[2020-07-30] MEDS: Aspirin 81 MG Tab.EC PO SCH (08:50)
[2020-07-30] MEDS: Clopidogrel 75 MG Tab PO SCH (08:50)
[2020-07-30] MEDS: Enoxaparin 40 MG/0.4 ML Syringe SUBCUT SCH ×2 (08:50→20:19)
[2020-07-30] MEDS: Cholecalciferol (Vitamin D3) 25 MCG Tab PO SCH (08:50)
[2020-07-30] MEDS: Ascorbic Acid 500 MG Tab PO SCH (08:51)
[2020-07-30] MEDS: Hydrochlorothiazide 12.5 MG Cap PO SCH (08:51)
[2020-07-30] MEDS: Carvedilol 12.5 MG Tab PO SCH ×2 (08:51→18:09)
[2020-07-30] MEDS: Chondroitin/Glucosamine Cap PO SCH ×2 (08:51→20:19)
[2020-07-30] MEDS: Benzonatate 100 MG Cap PO SCH ×2 (08:51→20:19)
[2020-07-30] MEDS: Multivitamins with Minerals/Iron/Folic Acid/Lycopene Tab PO SCH (08:51)
[2020-07-30] MEDS: Ferrous Sulfate 325 MG Tab PO SCH (08:51)
[2020-07-30] MEDS: Cyanocobalamin (Vitamin B12) 500 MCG Tab PO SCH (08:51)
[2020-07-30] MEDS: atorvaSTATin 40 MG Tab PO SCH (20:19)
[2020-07-30] MEDS: Sodium Chloride 0.65% Nasal Spray 45 ML Bottle NAS PRN (21:59)
[2020-07-31] MEDS: Omeprazole 20 MG Cap.CR PO SCH (07:37)
[2020-07-31] MEDS: Carvedilol 12.5 MG Tab PO SCH ×2 (07:37→17:20)
[2020-07-31] MEDS: Clopidogrel 75 MG Tab PO SCH (08:13)
[2020-07-31] MEDS: Chondroitin/Glucosamine Cap PO SCH ×2 (08:14→20:32)
[2020-07-31] MEDS: Aspirin 81 MG Tab.EC PO SCH (08:14)
[2020-07-31] MEDS: Ferrous Sulfate 325 MG Tab PO SCH (08:14)
[2020-07-31] MEDS: Benzonatate 100 MG Cap PO SCH ×2 (08:14→20:32)
[2020-07-31] MEDS: Cholecalciferol (Vitamin D3) 25 MCG Tab PO SCH (08:14)
[2020-07-31] MEDS: Multivitamins with Minerals/Iron/Folic Acid/Lycopene Tab PO SCH (08:14)
[2020-07-31] MEDS: Calcium Carbonate 600 MG Tab PO SCH (08:14)
[2020-07-31] MEDS: Losartan 25 MG Tab PO SCH (08:15)
[2020-07-31] MEDS: Enoxaparin 40 MG/0.4 ML Syringe SUBCUT SCH ×2 (08:15→20:32)
[2020-07-31] MEDS: Ascorbic Acid 500 MG Tab PO SCH (08:15)
[2020-07-31] MEDS: Cyanocobalamin (Vitamin B12) 500 MCG Tab PO SCH (08:15)
[2020-07-31] MEDS: Hydrochlorothiazide 12.5 MG Cap PO SCH (08:16)
[2020-07-31] MEDS: atorvaSTATin 40 MG Tab PO SCH (20:32)
[2020-07-31] MEDS: Sodium Chloride 0.65% Nasal Spray 45 ML Bottle NAS PRN ×2 (20:33→23:51)
[2020-08-01] MEDS: Fluticasone Propionate Nasal Spray 16 GM Bottle NASBOTH PRN (00:34)
[2020-08-01] MEDS: Omeprazole 20 MG Cap.CR PO SCH (07:38)
[2020-08-01] MEDS: Clopidogrel 75 MG Tab PO SCH (09:07)
[2020-08-01] MEDS: Chondroitin/Glucosamine Cap PO SCH ×2 (09:08→20:13)
[2020-08-01] MEDS: Ferrous Sulfate 325 MG Tab PO SCH (09:08)
[2020-08-01] MEDS: Benzonatate 100 MG Cap PO SCH ×2 (09:08→20:13)
[2020-08-01] MEDS: Hydrochlorothiazide 12.5 MG Cap PO SCH (09:09)
[2020-08-01] MEDS: Multivitamins with Minerals/Iron/Folic Acid/Lycopene Tab PO SCH (09:13)
[2020-08-01] MEDS: Aspirin 81 MG Tab.EC PO SCH (09:13)
[2020-08-01] MEDS: Calcium Carbonate 600 MG Tab PO SCH (09:13)
[2020-08-01] MEDS: Cyanocobalamin (Vitamin B12) 500 MCG Tab PO SCH (09:14)
[2020-08-01] MEDS: Carvedilol 12.5 MG Tab PO SCH ×2 (09:15→18:16)
[2020-08-01] MEDS: Ascorbic Acid 500 MG Tab PO SCH (09:15)
[2020-08-01] MEDS: Cholecalciferol (Vitamin D3) 25 MCG Tab PO SCH (09:16)
[2020-08-01] MEDS: Losartan 25 MG Tab PO SCH (09:16)
[2020-08-01] MEDS: Enoxaparin 40 MG/0.4 ML Syringe SUBCUT SCH ×2 (09:22→20:13)
--- NOTE | 2020-08-01 10:16 | PCM.PN ---
- General Info Date of Service: 08/01/20 Admission Dx/Problem (Free Text): Deconditioning s/p COVID pneumonia with acute hypoxemic respiratory failure. - Review of Systems Systems Review Comment:: Meryl is seen today on swingbed rounds. She had an uneventful weekend. She has beautiful emery in her room from friends. She is about to get in the shower when I see her this morning. Her oxygen has been able to be weaned down to 3L from 7L when she first came in. She still has shallow breathing that is tachypneic. She denies pain. - Patient Data Vitals - Most Recent: Last Vital Signs Temp 97.8 F 08/01/20 09:00 Pulse 96 08/01/20 09:15 Resp 40 H 08/01/20 09:00 BP 129/81 08/01/20 09:16 Pulse Ox 96 08/01/20 09:15 Weight - Most Recent: 179 lb I&O - Last 24 Hours: Intake & Output 07/31/20 08/01/20 08/01/20 22:59 06:59 14:59 Intake Total 570 100 Balance 570 100 Med Orders - Current: Current Medications Albuterol (Ventolin Hfa) 0 gm INH Q4H PRN PRN Reason: Shortness of Breath Albuterol/Ipratropium (Duoneb 3.0-0.5 Mg/3 Ml) 3 ml INH Q6H PRN PRN Reason: Shortness of Breath Ascorbic Acid (Vitamin C) 500 mg PO DAILY [facility] Last Admin: 08/01/20 09:15 Dose: 500 mg Documented by: Aspirin (Halfprin) 81 mg PO DAILY [facility] Last Admin: 08/01/20 09:13 Dose: 81 mg Documented by: Atorvastatin Calcium (Lipitor) 40 mg PO BEDTIME [facility] Last Admin: 07/31/20 20:32 Dose: 40 mg Documented by: Benzonatate (Tessalon Perles) 100 mg PO BID [facility] Last Admin: 08/01/20 09:08 Dose: 100 mg Documented by: Calcium Carbonate/Glycine (Calcium Carbonate) 600 mg PO DAILY [facility] Last Admin: 08/01/20 09:13 Dose: 600 mg Documented by: Carvedilol (Coreg) 12.5 mg PO BIDMEALS [facility] Last Admin: 08/01/20 09:15 Dose: 12.5 mg Documented by: Cholecalciferol (Vitamin D3) 50 mcg PO DAILY [facility] Last Admin: 08/01/20 09:16 Dose: 50 mcg Documented by: Clopidogrel Bisulfate (Plavix) 75 mg PO DAILY [facility] Last Admin: 08/01/20 09:07 Dose: 75 mg Documented by: Cyanocobalamin (Vitamin B12) 500 mcg PO DAILY [facility] Last Admin: 08/01/20 09:14 Dose: 500 mcg Documented by: Enoxaparin Sodium (Lovenox) 40 mg SUBCUT BID [facility] Last Admin: 08/01/20 09:22 Dose: 40 mg Documented by: Ferrous Sulfate (Ferrous Sulfate) 325 mg PO DAILY [facility] Last Admin: 08/01/20 09:08 Dose: 325 mg Documented by: Fluticasone Propionate (Flonase) 0 gm [place] ONETIME PRN PRN Reason: nasal congestion Last Admin: 08/01/20 00:34 Dose: 1 spray Documented by: Glucosamine/Chondroitin (Glucosamine-Chondroitin 500-400 Capsule) 1 cap PO BID [facility] Last Admin: 08/01/20 09:08 Dose: 1 cap Documented by: Hydrochlorothiazide (Hydrochlorothiazide) 12.5 mg PO DAILY [facility] Last Admin: 08/01/20 09:09 Dose: 12.5 mg Documented by: Losartan Potassium (Cozaar) 12.5 mg PO DAILY [facility] Last Admin: 08/01/20 09:16 Dose: 12.5 mg Documented by: Multivitamins/Minerals (Centrum) 1 tab PO DAILY [facility] Last Admin: 08/01/20 09:13 Dose: 1 tab Documented by: Omeprazole (Omeprazole) 40 mg PO ACBREAKFAST [facility] Last Admin: 08/01/20 07:38 Dose: 40 mg Documented by: Sodium Chloride ([place] Nasal [place]) 0 ml LARRY Q4H PRN PRN Reason: nasal congestion Last Admin: 07/31/20 23:51 Dose: 1 spray Documented by: Discontinued Medications Omeprazole (Omeprazole) 40 mg PO DAILY [facility] - Exam Quality Assessment: Supplemental Oxygen General: Alert, Oriented, Cooperative, No Acute Distress Lungs: Decreased Breath Sounds Sepsis Event Note - Evaluation Sepsis Screening Result: No Definite Risk - Focused Exam Vital Signs: Vital Signs Temp Pulse Pulse Resp BP BP Pulse Ox 08/01/20 09:16 129/81 08/01/20 09:15 96 129/81 08/01/20 09:00 97.8 F 96 40 H 129/81 96 Pulse Ox 08/01/20 09:16 08/01/20 09:15 96 08/01/20 09:00 - Problem List Review Problem List Initiated/Reviewed/Updated: Yes - Assessment Assessment:: Hospital Problems: Weakness/deconditioning secondary to COVID 19 pneumonia. - Continue PT Hypoxemia - O2 to maintain sats >90%. Currently at 3L via [place] - Albuterol inhaler q 4 hours PRN SOB - Duonebs q 6 hours PRN SOB HFrEF with cardiomyopathy, felt to be secondary to COVID, EF 30%, Grade 3/4 diastolic dysfunction - Outpatient cardiac cath recommended at discharge from [place] - ECHO 05/31/2020 at [facility] NSTEMI Type 1 - ASA 81 mg PO daily - Clopidogrel 75 mg PO daily HTN - Carvedilol 12.5 mg PO BID - HCTZ 12.5 mg PO daily - Losartan 12.5 mg PO daily Hyperlipidemia - Atorvastatin 40 mg PO daily Hx of anemia secondary to gastric ulcer - Omeprazole 40 mg PO daily AM Moderate malnutrition - Regular diet as tolerated Nutritional supplements - Vit C 500 mg PO daily - Glucosamine/Chondriotin 1 cap PO BID - Calcium carbonate 600 mg PO daily - Vit B12 500 mcg PO daily DVT PPX: Enoxaparin 40 mg Subcut BID (dosing per [place] discharge) CODE STATUS: Full code with trial of intubation x 2 weeks per advanced directive
[2020-08-01] MEDS: atorvaSTATin 40 MG Tab PO SCH (20:13)
[2020-08-02] MEDS: Omeprazole 20 MG Cap.CR PO SCH (07:24)
[2020-08-02] MEDS: Enoxaparin 40 MG/0.4 ML Syringe SUBCUT SCH ×2 (08:05→21:19)
[2020-08-02] MEDS: Cyanocobalamin (Vitamin B12) 500 MCG Tab PO SCH (08:06)
[2020-08-02] MEDS: Ferrous Sulfate 325 MG Tab PO SCH (08:06)
[2020-08-02] MEDS: Losartan 25 MG Tab PO SCH (08:07)
[2020-08-02] MEDS: Chondroitin/Glucosamine Cap PO SCH ×2 (08:07→21:19)
[2020-08-02] MEDS: Cholecalciferol (Vitamin D3) 25 MCG Tab PO SCH (08:08)
[2020-08-02] MEDS: Multivitamins with Minerals/Iron/Folic Acid/Lycopene Tab PO SCH (08:09)
[2020-08-02] MEDS: Calcium Carbonate 600 MG Tab PO SCH (08:09)
[2020-08-02] MEDS: Carvedilol 12.5 MG Tab PO SCH ×2 (08:09→17:33)
[2020-08-02] MEDS: Aspirin 81 MG Tab.EC PO SCH (08:09)
[2020-08-02] MEDS: Clopidogrel 75 MG Tab PO SCH (08:10)
[2020-08-02] MEDS: Hydrochlorothiazide 12.5 MG Cap PO SCH (08:10)
[2020-08-02] MEDS: Ascorbic Acid 500 MG Tab PO SCH (08:10)
[2020-08-02] MEDS: Benzonatate 100 MG Cap PO SCH ×2 (08:11→21:19)
[2020-08-02] MEDS: atorvaSTATin 40 MG Tab PO SCH (21:19)
[2020-08-03] MEDS: Omeprazole 20 MG Cap.CR PO SCH (07:27)
[2020-08-03] MEDS: Losartan 25 MG Tab PO SCH (08:04)
[2020-08-03] MEDS: Ferrous Sulfate 325 MG Tab PO SCH (08:04)
[2020-08-03] MEDS: Calcium Carbonate 600 MG Tab PO SCH (08:04)
[2020-08-03] MEDS: Carvedilol 12.5 MG Tab PO SCH ×2 (08:05→18:03)
[2020-08-03] MEDS: Cholecalciferol (Vitamin D3) 25 MCG Tab PO SCH (08:05)
[2020-08-03] MEDS: Hydrochlorothiazide 12.5 MG Cap PO SCH (08:05)
[2020-08-03] MEDS: Ascorbic Acid 500 MG Tab PO SCH (08:06)
[2020-08-03] MEDS: Chondroitin/Glucosamine Cap PO SCH ×2 (08:06→21:09)
[2020-08-03] MEDS: Aspirin 81 MG Tab.EC PO SCH (08:06)
[2020-08-03] MEDS: Benzonatate 100 MG Cap PO SCH ×2 (08:06→21:09)
[2020-08-03] MEDS: Clopidogrel 75 MG Tab PO SCH (08:06)
[2020-08-03] MEDS: Cyanocobalamin (Vitamin B12) 500 MCG Tab PO SCH (08:06)
[2020-08-03] MEDS: Multivitamins with Minerals/Iron/Folic Acid/Lycopene Tab PO SCH (08:06)
[2020-08-03] MEDS: Enoxaparin 40 MG/0.4 ML Syringe SUBCUT SCH ×2 (08:06→21:09)
[2020-08-03] MEDS: atorvaSTATin 40 MG Tab PO SCH (21:09)
[2020-08-04] MEDS: Omeprazole 20 MG Cap.CR PO SCH (07:42)
[2020-08-04] MEDS: Ferrous Sulfate 325 MG Tab PO SCH (08:10)
[2020-08-04] MEDS: Enoxaparin 40 MG/0.4 ML Syringe SUBCUT SCH ×2 (08:10→20:00)
[2020-08-04] MEDS: Clopidogrel 75 MG Tab PO SCH (08:10)
[2020-08-04] MEDS: Benzonatate 100 MG Cap PO SCH ×2 (08:10→20:00)
[2020-08-04] MEDS: Chondroitin/Glucosamine Cap PO SCH ×2 (08:10→20:00)
[2020-08-04] MEDS: Ascorbic Acid 500 MG Tab PO SCH (08:10)
[2020-08-04] MEDS: Hydrochlorothiazide 12.5 MG Cap PO SCH (08:10)
[2020-08-04] MEDS: Multivitamins with Minerals/Iron/Folic Acid/Lycopene Tab PO SCH (08:10)
[2020-08-04] MEDS: Aspirin 81 MG Tab.EC PO SCH (08:10)
[2020-08-04] MEDS: Calcium Carbonate 600 MG Tab PO SCH (08:10)
[2020-08-04] MEDS: Losartan 25 MG Tab PO SCH (08:11)
[2020-08-04] MEDS: Carvedilol 12.5 MG Tab PO SCH ×2 (08:11→18:19)
[2020-08-04] MEDS: Cyanocobalamin (Vitamin B12) 500 MCG Tab PO SCH (08:11)
[2020-08-04] MEDS: Cholecalciferol (Vitamin D3) 25 MCG Tab PO SCH (08:11)
[2020-08-04] MEDS: atorvaSTATin 40 MG Tab PO SCH (20:00)
[2020-08-05] MEDS: Carvedilol 12.5 MG Tab PO SCH ×2 (07:39→17:39)
[2020-08-05] MEDS: Omeprazole 20 MG Cap.CR PO SCH (07:39)
[2020-08-05] MEDS: Losartan 25 MG Tab PO SCH (08:16)
[2020-08-05] MEDS: Cholecalciferol (Vitamin D3) 25 MCG Tab PO SCH (08:17)
[2020-08-05] MEDS: Multivitamins with Minerals/Iron/Folic Acid/Lycopene Tab PO SCH (08:17)
[2020-08-05] MEDS: Ferrous Sulfate 325 MG Tab PO SCH (08:17)
[2020-08-05] MEDS: Ascorbic Acid 500 MG Tab PO SCH (08:17)
[2020-08-05] MEDS: Calcium Carbonate 600 MG Tab PO SCH (08:17)
[2020-08-05] MEDS: Chondroitin/Glucosamine Cap PO SCH ×2 (08:17→21:20)
[2020-08-05] MEDS: Hydrochlorothiazide 12.5 MG Cap PO SCH (08:17)
[2020-08-05] MEDS: Aspirin 81 MG Tab.EC PO SCH (08:17)
[2020-08-05] MEDS: Benzonatate 100 MG Cap PO SCH ×2 (08:17→21:20)
[2020-08-05] MEDS: Cyanocobalamin (Vitamin B12) 500 MCG Tab PO SCH (08:17)
[2020-08-05] MEDS: Clopidogrel 75 MG Tab PO SCH (08:17)
[2020-08-05] MEDS: Enoxaparin 40 MG/0.4 ML Syringe SUBCUT SCH ×2 (08:18→21:20)
[2020-08-05] MEDS: atorvaSTATin 40 MG Tab PO SCH (21:20)
[2020-08-06] MEDS: Omeprazole 20 MG Cap.CR PO SCH (07:40)
[2020-08-06] MEDS: Enoxaparin 40 MG/0.4 ML Syringe SUBCUT SCH ×2 (08:24→20:31)
[2020-08-06] MEDS: Cholecalciferol (Vitamin D3) 25 MCG Tab PO SCH (08:27)
[2020-08-06] MEDS: Chondroitin/Glucosamine Cap PO SCH ×2 (08:28→20:31)
[2020-08-06] MEDS: Hydrochlorothiazide 12.5 MG Cap PO SCH (08:28)
[2020-08-06] MEDS: Clopidogrel 75 MG Tab PO SCH (08:28)
[2020-08-06] MEDS: Ferrous Sulfate 325 MG Tab PO SCH (08:28)
[2020-08-06] MEDS: Cyanocobalamin (Vitamin B12) 500 MCG Tab PO SCH (08:28)
[2020-08-06] MEDS: Benzonatate 100 MG Cap PO SCH ×2 (08:29→20:31)
[2020-08-06] MEDS: Aspirin 81 MG Tab.EC PO SCH (08:29)
[2020-08-06] MEDS: Ascorbic Acid 500 MG Tab PO SCH (08:29)
[2020-08-06] MEDS: Calcium Carbonate 600 MG Tab PO SCH (08:29)
[2020-08-06] MEDS: Losartan 25 MG Tab PO SCH (08:33)
[2020-08-06] MEDS: Carvedilol 12.5 MG Tab PO SCH ×2 (08:35→18:14)
[2020-08-06] MEDS: Multivitamins with Minerals/Iron/Folic Acid/Lycopene Tab PO SCH (18:13)
[2020-08-06] MEDS: atorvaSTATin 40 MG Tab PO SCH (20:31)
[2020-08-07] MEDS: Omeprazole 20 MG Cap.CR PO SCH ×2 (06:17→06:32)
[2020-08-07] MEDS: Cholecalciferol (Vitamin D3) 25 MCG Tab PO SCH (08:17)
[2020-08-07] MEDS: Enoxaparin 40 MG/0.4 ML Syringe SUBCUT SCH ×2 (08:17→20:26)
[2020-08-07] MEDS: Carvedilol 12.5 MG Tab PO SCH ×2 (08:18→17:57)
[2020-08-07] MEDS: Losartan 25 MG Tab PO SCH (08:18)
[2020-08-07] MEDS: Hydrochlorothiazide 12.5 MG Cap PO SCH (08:18)
[2020-08-07] MEDS: Ascorbic Acid 500 MG Tab PO SCH (08:19)
[2020-08-07] MEDS: Multivitamins with Minerals/Iron/Folic Acid/Lycopene Tab PO SCH (08:19)
[2020-08-07] MEDS: Ferrous Sulfate 325 MG Tab PO SCH (08:19)
[2020-08-07] MEDS: Chondroitin/Glucosamine Cap PO SCH ×2 (08:19→20:26)
[2020-08-07] MEDS: Benzonatate 100 MG Cap PO SCH ×2 (08:19→20:26)
[2020-08-07] MEDS: Aspirin 81 MG Tab.EC PO SCH (08:19)
[2020-08-07] MEDS: Calcium Carbonate 600 MG Tab PO SCH (08:19)
[2020-08-07] MEDS: Cyanocobalamin (Vitamin B12) 500 MCG Tab PO SCH (08:19)
[2020-08-07] MEDS: Clopidogrel 75 MG Tab PO SCH (08:19)
[2020-08-07] MEDS: atorvaSTATin 40 MG Tab PO SCH (20:26)
[2020-08-08] MEDS: Omeprazole 20 MG Cap.CR PO SCH ×2 (06:08→06:29)
[2020-08-08] MEDS: Carvedilol 12.5 MG Tab PO SCH ×2 (09:08→17:36)
[2020-08-08] MEDS: Multivitamins with Minerals/Iron/Folic Acid/Lycopene Tab PO SCH (09:14)
[2020-08-08] MEDS: Cholecalciferol (Vitamin D3) 25 MCG Tab PO SCH (09:14)
[2020-08-08] MEDS: Ascorbic Acid 500 MG Tab PO SCH (09:14)
[2020-08-08] MEDS: Aspirin 81 MG Tab.EC PO SCH (09:16)
[2020-08-08] MEDS: Chondroitin/Glucosamine Cap PO SCH ×2 (09:16→20:25)
[2020-08-08] MEDS: Clopidogrel 75 MG Tab PO SCH (09:16)
[2020-08-08] MEDS: Calcium Carbonate 600 MG Tab PO SCH (09:16)
--- NOTE | 2020-08-08 09:16 | PCM.PN ---
- General Info Date of Service: 08/08/20 Admission Dx/Problem (Free Text): Deconditioning s/p COVID pneumonia with acute hypoxemic respiratory failure. - Review of Systems Systems Review Comment:: Meryl is seen today on swingbed rounds. She is here for recovery from COVID pneumonia with significant deconditioning. She has been progressing quite well. She was initially on 7L of O2 at rest and is currently at 3L via NC and gets up to 8L with activity. She states she doesn't sleep very well at night as the bed is not as comfortable as her bed at home. She did have some company this weekend. She states her appetite is good. She is passing her bowels regularly. She has no pain. She has a dry cough after she does incentive spirometry and sometimes after activity. She has benzonatate for that. - Patient Data Vitals - Most Recent: Last Vital Signs Temp 98.0 F 08/07/20 06:16 Pulse 85 08/07/20 17:57 Resp 18 08/07/20 06:16 BP 137/85 08/07/20 17:57 Pulse Ox 96 08/07/20 06:16 Weight - Most Recent: 180 lb 1 oz I&O - Last 24 Hours: Intake & Output 08/07/20 08/08/20 08/08/20 22:59 06:59 14:59 Intake Total 0 Balance 0 Med Orders - Current: Current Medications Albuterol (Ventolin Hfa) 0 gm INH Q4H PRN PRN Reason: Shortness of Breath Albuterol/Ipratropium (Duoneb 3.0-0.5 Mg/3 Ml) 3 ml INH Q6H PRN PRN Reason: Shortness of Breath Ascorbic Acid (Vitamin C) 500 mg PO DAILY [facility] Last Admin: 08/07/20 08:19 Dose: 500 mg Documented by: Aspirin (Halfprin) 81 mg PO DAILY [facility] Last Admin: 08/07/20 08:19 Dose: 81 mg Documented by: Atorvastatin Calcium (Lipitor) 40 mg PO BEDTIME [facility] Last Admin: 08/07/20 20:26 Dose: 40 mg Documented by: Benzonatate (Tessalon Perles) 100 mg PO BID [facility] Last Admin: 08/07/20 20:26 Dose: 100 mg Documented by: Calcium Carbonate/Glycine (Calcium Carbonate) 600 mg PO DAILY [facility] Last Admin: 08/07/20 08:19 Dose: 600 mg Documented by: Carvedilol (Coreg) 12.5 mg PO BIDMEALS [facility] Last Admin: 08/07/20 17:57 Dose: 12.5 mg Documented by: Cholecalciferol (Vitamin D3) 50 mcg PO DAILY [facility] Last Admin: 08/07/20 08:17 Dose: 50 mcg Documented by: Clopidogrel Bisulfate (Plavix) 75 mg PO DAILY [facility] Last Admin: 08/07/20 08:19 Dose: 75 mg Documented by: Cyanocobalamin (Vitamin B12) 500 mcg PO DAILY [facility] Last Admin: 08/07/20 08:19 Dose: 500 mcg Documented by: Enoxaparin Sodium (Lovenox) 40 mg SUBCUT BID [facility] Stop: 08/14/20 21:01 Last Admin: 08/07/20 20:26 Dose: 40 mg Documented by: Ferrous Sulfate (Ferrous Sulfate) 325 mg PO DAILY [facility] Last Admin: 08/07/20 08:19 Dose: 325 mg Documented by: Fluticasone Propionate (Flonase) 0 gm NASBOTH ONETIME PRN PRN Reason: nasal congestion Last Admin: 08/01/20 00:34 Dose: 1 spray Documented by: Glucosamine/Chondroitin (Glucosamine-Chondroitin 500-400 Capsule) 1 cap PO BID [facility] Last Admin: 08/07/20 20:26 Dose: 1 cap Documented by: Hydrochlorothiazide (Hydrochlorothiazide) 12.5 mg PO DAILY [facility] Last Admin: 08/07/20 08:18 Dose: 12.5 mg Documented by: Losartan Potassium (Cozaar) 12.5 mg PO DAILY [facility] Last Admin: 08/07/20 08:18 Dose: 12.5 mg Documented by: Multivitamins/Minerals (Centrum) 1 tab PO DAILY [facility] Last Admin: 08/07/20 08:19 Dose: 1 tab Documented by: Omeprazole (Omeprazole) 40 mg PO ACBREAKFAST [facility] Last Admin: 08/08/20 06:29 Dose: Not Given Documented by: Sodium Chloride ([place] Nasal [place]) 0 ml LARRY Q4H PRN PRN Reason: nasal congestion Last Admin: 07/31/20 23:51 Dose: 1 spray Documented by: Discontinued Medications Omeprazole (Omeprazole) 40 mg PO DAILY [facility] - Exam Quality Assessment: Supplemental Oxygen General: Alert, Oriented, Cooperative, No Acute Distress Lungs: Clear to Auscultation, Normal Respiratory Effort Cardiovascular: Regular Rate, Regular Rhythm, No Murmurs GI/Abdominal Exam: Normal Bowel Sounds Extremities: No Pedal Edema Sepsis Event Note - Evaluation Sepsis Screening Result: No Definite Risk - Problem List Review Problem List Initiated/Reviewed/Updated: Yes - Assessment Assessment:: Hospital Problems: Weakness/deconditioning secondary to COVID 19 pneumonia. - Continue PT Hypoxemia - O2 to maintain sats >90%. Currently at 3L via NC - Albuterol inhaler q 4 hours PRN SOB - Duonebs q 6 hours PRN SOB HFrEF with cardiomyopathy, felt to be secondary to COVID, EF 30%, Grade 3/4 diastolic dysfunction - Outpatient cardiac cath recommended at discharge from [facility] ECHO 05/31/2020 at [facility] ECHO 07/21/2020, recovery of systolic function, now with EF 60-65% Hx NSTEMI Type 1 - ASA 81 mg PO daily - Clopidogrel 75 mg PO daily HTN - Carvedilol 12.5 mg PO BID - HCTZ 12.5 mg PO daily - Losartan 12.5 mg PO daily Hyperlipidemia - Atorvastatin 40 mg PO daily Hx of anemia secondary to gastric ulcer - Omeprazole 40 mg PO daily AM Moderate malnutrition - Regular diet as tolerated Nutritional supplements - Vit C 500 mg PO daily - Glucosamine/Chondriotin 1 cap PO BID - Calcium carbonate 600 mg PO daily - Vit B12 500 mcg PO daily DVT PPX: Enoxaparin 40 mg Subcut BID (dosing per [facility] discharge through 08/13/2020). Will decrease to 40 mg subcut daily starting 08/14/2020. CODE STATUS: Full code with trial of intubation x 2 weeks per advanced directive
[2020-08-08] MEDS: Ferrous Sulfate 325 MG Tab PO SCH (09:17)
[2020-08-08] MEDS: Hydrochlorothiazide 12.5 MG Cap PO SCH (09:17)
[2020-08-08] MEDS: Benzonatate 100 MG Cap PO SCH ×2 (09:17→20:25)
[2020-08-08] MEDS: Cyanocobalamin (Vitamin B12) 500 MCG Tab PO SCH (09:17)
[2020-08-08] MEDS: Losartan 25 MG Tab PO SCH (09:18)
[2020-08-08] MEDS: Enoxaparin 40 MG/0.4 ML Syringe SUBCUT SCH ×2 (09:20→20:25)
[2020-08-08] MEDS ORDERED: Melatonin 3 MG Tab PO PRN (09:42)
[2020-08-08] MEDS: atorvaSTATin 40 MG Tab PO SCH (20:25)
[2020-08-09] MEDS: Omeprazole 20 MG Cap.CR PO SCH ×2 (06:25→06:32)
[2020-08-09] MEDS: Chondroitin/Glucosamine Cap PO SCH ×2 (08:21→20:08)
[2020-08-09] MEDS: Calcium Carbonate 600 MG Tab PO SCH (08:21)
[2020-08-09] MEDS: Benzonatate 100 MG Cap PO SCH ×2 (08:21→20:08)
[2020-08-09] MEDS: Losartan 25 MG Tab PO SCH (08:21)
[2020-08-09] MEDS: Clopidogrel 75 MG Tab PO SCH (08:21)
[2020-08-09] MEDS: Hydrochlorothiazide 12.5 MG Cap PO SCH (08:21)
[2020-08-09] MEDS: Multivitamins with Minerals/Iron/Folic Acid/Lycopene Tab PO SCH (08:22)
[2020-08-09] MEDS: Ferrous Sulfate 325 MG Tab PO SCH (08:22)
[2020-08-09] MEDS: Carvedilol 12.5 MG Tab PO SCH ×2 (08:22→17:48)
[2020-08-09] MEDS: Cyanocobalamin (Vitamin B12) 500 MCG Tab PO SCH (08:22)
[2020-08-09] MEDS: Ascorbic Acid 500 MG Tab PO SCH (08:22)
[2020-08-09] MEDS: Cholecalciferol (Vitamin D3) 25 MCG Tab PO SCH (08:22)
[2020-08-09] MEDS: Aspirin 81 MG Tab.EC PO SCH (08:22)
[2020-08-09] MEDS: Enoxaparin 40 MG/0.4 ML Syringe SUBCUT SCH ×2 (08:22→20:08)
[2020-08-09] MEDS: atorvaSTATin 40 MG Tab PO SCH (20:08)
[2020-08-10] MEDS: Omeprazole 20 MG Cap.CR PO SCH (06:36)
[2020-08-10] MEDS: Ferrous Sulfate 325 MG Tab PO SCH (08:32)
[2020-08-10] MEDS: Losartan 25 MG Tab PO SCH (08:32)
[2020-08-10] MEDS: Ascorbic Acid 500 MG Tab PO SCH (08:32)
[2020-08-10] MEDS: Cyanocobalamin (Vitamin B12) 500 MCG Tab PO SCH (08:32)
[2020-08-10] MEDS: Benzonatate 100 MG Cap PO SCH ×2 (08:32→20:26)
[2020-08-10] MEDS: Clopidogrel 75 MG Tab PO SCH (08:32)
[2020-08-10] MEDS: Carvedilol 12.5 MG Tab PO SCH ×2 (08:32→18:07)
[2020-08-10] MEDS: Cholecalciferol (Vitamin D3) 25 MCG Tab PO SCH (08:32)
[2020-08-10] MEDS: Aspirin 81 MG Tab.EC PO SCH (08:32)
[2020-08-10] MEDS: Calcium Carbonate 600 MG Tab PO SCH (08:32)
[2020-08-10] MEDS: Hydrochlorothiazide 12.5 MG Cap PO SCH (08:32)
[2020-08-10] MEDS: Multivitamins with Minerals/Iron/Folic Acid/Lycopene Tab PO SCH (08:32)
[2020-08-10] MEDS: Chondroitin/Glucosamine Cap PO SCH ×2 (08:32→20:26)
[2020-08-10] MEDS: Enoxaparin 40 MG/0.4 ML Syringe SUBCUT SCH ×2 (08:35→20:26)
[2020-08-10] MEDS: atorvaSTATin 40 MG Tab PO SCH (20:26)
[2020-08-11] MEDS: Omeprazole 20 MG Cap.CR PO SCH (06:35)
[2020-08-11] MEDS: Ferrous Sulfate 325 MG Tab PO SCH (09:05)
[2020-08-11] MEDS: Aspirin 81 MG Tab.EC PO SCH (09:05)
[2020-08-11] MEDS: Cholecalciferol (Vitamin D3) 25 MCG Tab PO SCH (09:06)
[2020-08-11] MEDS: Hydrochlorothiazide 12.5 MG Cap PO SCH (09:06)
[2020-08-11] MEDS: Multivitamins with Minerals/Iron/Folic Acid/Lycopene Tab PO SCH (09:06)
[2020-08-11] MEDS: Benzonatate 100 MG Cap PO SCH ×2 (09:07→20:38)
[2020-08-11] MEDS: Cyanocobalamin (Vitamin B12) 500 MCG Tab PO SCH (09:07)
[2020-08-11] MEDS: Losartan 25 MG Tab PO SCH (09:08)
[2020-08-11] MEDS: Calcium Carbonate 600 MG Tab PO SCH (09:12)
[2020-08-11] MEDS: Ascorbic Acid 500 MG Tab PO SCH (09:12)
[2020-08-11] MEDS: Clopidogrel 75 MG Tab PO SCH (09:12)
[2020-08-11] MEDS: Carvedilol 12.5 MG Tab PO SCH ×2 (09:13→17:50)
[2020-08-11] MEDS: Chondroitin/Glucosamine Cap PO SCH ×2 (09:14→20:38)
[2020-08-11] MEDS: Enoxaparin 40 MG/0.4 ML Syringe SUBCUT SCH ×2 (09:14→20:38)
[2020-08-11] MEDS: atorvaSTATin 40 MG Tab PO SCH (20:38)
[2020-08-12] MEDS: Omeprazole 20 MG Cap.CR PO SCH (06:46)
[2020-08-12] MEDS: Benzonatate 100 MG Cap PO SCH ×2 (08:24→20:34)
[2020-08-12] MEDS: Cholecalciferol (Vitamin D3) 25 MCG Tab PO SCH (08:24)
[2020-08-12] MEDS: Carvedilol 12.5 MG Tab PO SCH ×2 (08:24→17:30)
[2020-08-12] MEDS: Losartan 25 MG Tab PO SCH (08:24)
[2020-08-12] MEDS: Clopidogrel 75 MG Tab PO SCH (08:24)
[2020-08-12] MEDS: Ascorbic Acid 500 MG Tab PO SCH (08:24)
[2020-08-12] MEDS: Ferrous Sulfate 325 MG Tab PO SCH (08:24)
[2020-08-12] MEDS: Calcium Carbonate 600 MG Tab PO SCH (08:25)
[2020-08-12] MEDS: Enoxaparin 40 MG/0.4 ML Syringe SUBCUT SCH ×2 (08:25→20:34)
[2020-08-12] MEDS: Hydrochlorothiazide 12.5 MG Cap PO SCH (08:25)
[2020-08-12] MEDS: Cyanocobalamin (Vitamin B12) 500 MCG Tab PO SCH (08:25)
[2020-08-12] MEDS: Chondroitin/Glucosamine Cap PO SCH ×2 (08:25→20:34)
[2020-08-12] MEDS: Aspirin 81 MG Tab.EC PO SCH (08:25)
[2020-08-12] MEDS: Multivitamins with Minerals/Iron/Folic Acid/Lycopene Tab PO SCH (08:25)
[2020-08-12] MEDS: atorvaSTATin 40 MG Tab PO SCH (20:34)
[2020-08-13] MEDS: Omeprazole 20 MG Cap.CR PO SCH (07:23)
[2020-08-13] MEDS: Enoxaparin 40 MG/0.4 ML Syringe SUBCUT SCH ×2 (08:21→20:18)
[2020-08-13] MEDS: Clopidogrel 75 MG Tab PO SCH (08:22)
[2020-08-13] MEDS: Multivitamins with Minerals/Iron/Folic Acid/Lycopene Tab PO SCH (08:22)
[2020-08-13] MEDS: Aspirin 81 MG Tab.EC PO SCH (08:22)
[2020-08-13] MEDS: Ascorbic Acid 500 MG Tab PO SCH (08:22)
[2020-08-13] MEDS: Cholecalciferol (Vitamin D3) 25 MCG Tab PO SCH (08:22)
[2020-08-13] MEDS: Hydrochlorothiazide 12.5 MG Cap PO SCH (08:22)
[2020-08-13] MEDS: Carvedilol 12.5 MG Tab PO SCH ×2 (08:22→18:06)
[2020-08-13] MEDS: Calcium Carbonate 600 MG Tab PO SCH (08:22)
[2020-08-13] MEDS: Losartan 25 MG Tab PO SCH (08:22)
[2020-08-13] MEDS: Ferrous Sulfate 325 MG Tab PO SCH (08:23)
[2020-08-13] MEDS: Benzonatate 100 MG Cap PO SCH ×2 (08:23→20:18)
[2020-08-13] MEDS: Chondroitin/Glucosamine Cap PO SCH ×2 (08:23→20:18)
[2020-08-13] MEDS: Cyanocobalamin (Vitamin B12) 500 MCG Tab PO SCH (08:25)
[2020-08-13] MEDS: atorvaSTATin 40 MG Tab PO SCH (20:18)
[2020-08-14] MEDS: Omeprazole 20 MG Cap.CR PO SCH (07:33)
[2020-08-14] MEDS: Enoxaparin 40 MG/0.4 ML Syringe SUBCUT SCH ×2 (08:38→20:34)
[2020-08-14] MEDS: Hydrochlorothiazide 12.5 MG Cap PO SCH (08:39)
[2020-08-14] MEDS: Losartan 25 MG Tab PO SCH (08:39)
[2020-08-14] MEDS: Ferrous Sulfate 325 MG Tab PO SCH (08:39)
[2020-08-14] MEDS: Cholecalciferol (Vitamin D3) 25 MCG Tab PO SCH (08:40)
[2020-08-14] MEDS: Cyanocobalamin (Vitamin B12) 500 MCG Tab PO SCH (08:41)
[2020-08-14] MEDS: Clopidogrel 75 MG Tab PO SCH (08:41)
[2020-08-14] MEDS: Calcium Carbonate 600 MG Tab PO SCH (08:42)
[2020-08-14] MEDS: Ascorbic Acid 500 MG Tab PO SCH (08:42)
[2020-08-14] MEDS: Chondroitin/Glucosamine Cap PO SCH ×2 (08:42→20:34)
[2020-08-14] MEDS: Carvedilol 12.5 MG Tab PO SCH ×2 (08:42→17:43)
[2020-08-14] MEDS: Aspirin 81 MG Tab.EC PO SCH (08:43)
[2020-08-14] MEDS: Benzonatate 100 MG Cap PO SCH ×2 (08:43→20:34)
[2020-08-14] MEDS: Multivitamins with Minerals/Iron/Folic Acid/Lycopene Tab PO SCH (08:43)
[2020-08-14] MEDS: atorvaSTATin 40 MG Tab PO SCH (20:34)
[2020-08-15] MEDS: Omeprazole 20 MG Cap.CR PO SCH ×2 (05:56→06:30)
[2020-08-15] MEDS: Chondroitin/Glucosamine Cap PO SCH ×2 (08:08→20:15)
[2020-08-15] MEDS: Benzonatate 100 MG Cap PO SCH ×2 (08:08→20:15)
[2020-08-15] MEDS: Losartan 25 MG Tab PO SCH (08:09)
[2020-08-15] MEDS: Ferrous Sulfate 325 MG Tab PO SCH (08:09)
[2020-08-15] MEDS: Clopidogrel 75 MG Tab PO SCH (08:09)
[2020-08-15] MEDS: Ascorbic Acid 500 MG Tab PO SCH (08:09)
[2020-08-15] MEDS: Aspirin 81 MG Tab.EC PO SCH (08:09)
[2020-08-15] MEDS: Multivitamins with Minerals/Iron/Folic Acid/Lycopene Tab PO SCH (08:09)
[2020-08-15] MEDS: Hydrochlorothiazide 12.5 MG Cap PO SCH (08:09)
[2020-08-15] MEDS: Cholecalciferol (Vitamin D3) 25 MCG Tab PO SCH (08:09)
[2020-08-15] MEDS: Cyanocobalamin (Vitamin B12) 500 MCG Tab PO SCH (08:09)
[2020-08-15] MEDS: Calcium Carbonate 600 MG Tab PO SCH (08:09)
[2020-08-15] MEDS: Carvedilol 12.5 MG Tab PO SCH ×2 (08:09→17:56)
[2020-08-15] MEDS: Enoxaparin 40 MG/0.4 ML Syringe SUBCUT SCH (08:10)
--- NOTE | 2020-08-15 08:53 | PCM.PN ---
- General Info Date of Service: 08/15/20 Admission Dx/Problem (Free Text): Deconditioning s/p COVID pneumonia with acute hypoxemic respiratory failure. - Review of Systems Systems Review Comment:: Meryl is seen today on swingbed rounds. She had a quiet weekend, no visitors but had several phone calls from friends. She went for several walks with staff. She only gets SOB if her oxygen is not turned up high enough with activity. Currently at rest she is on 2L via NC which is down from 7L when she first arrived. She feels she is getting stronger. I had ordered melatonin for her to take at bedtime last week but she notes she has not needed to use it. Appetite has been good. - Patient Data Vitals - Most Recent: Last Vital Signs Temp 97.2 F 08/15/20 07:58 Pulse 79 08/15/20 08:09 Resp 20 08/15/20 07:58 BP 127/81 08/15/20 08:09 Pulse Ox 97 08/15/20 07:58 Weight - Most Recent: 175 lb 6 oz I&O - Last 24 Hours: Intake & Output 08/14/20 08/15/20 08/15/20 22:59 06:59 14:59 Intake Total 360 100 Balance 360 100 Med Orders - Current: Current Medications Albuterol (Ventolin Hfa) 0 gm INH Q4H PRN PRN Reason: Shortness of Breath Albuterol/Ipratropium (Duoneb 3.0-0.5 Mg/3 Ml) 3 ml INH Q6H PRN PRN Reason: Shortness of Breath Ascorbic Acid (Vitamin C) 500 mg PO DAILY [facility] Last Admin: 08/15/20 08:09 Dose: 500 mg Documented by: Aspirin (Halfprin) 81 mg PO DAILY [facility] Last Admin: 08/15/20 08:09 Dose: 81 mg Documented by: Atorvastatin Calcium (Lipitor) 40 mg PO BEDTIME [facility] Last Admin: 08/14/20 20:34 Dose: 40 mg Documented by: Benzonatate (Tessalon Perles) 100 mg PO BID [facility] Last Admin: 08/15/20 08:08 Dose: 100 mg Documented by: Calcium Carbonate/Glycine (Calcium Carbonate) 600 mg PO DAILY [facility] Last Admin: 08/15/20 08:09 Dose: 600 mg Documented by: Carvedilol (Coreg) 12.5 mg PO BIDMEALS [facility] Last Admin: 08/15/20 08:09 Dose: 12.5 mg Documented by: Cholecalciferol (Vitamin D3) 50 mcg PO DAILY [facility] Last Admin: 08/15/20 08:09 Dose: 50 mcg Documented by: Clopidogrel Bisulfate (Plavix) 75 mg PO DAILY [facility] Last Admin: 08/15/20 08:09 Dose: 75 mg Documented by: Cyanocobalamin (Vitamin B12) 500 mcg PO DAILY [facility] Last Admin: 08/15/20 08:09 Dose: 500 mcg Documented by: Enoxaparin Sodium (Lovenox) 40 mg SUBCUT Q24H [facility] Last Admin: 08/15/20 08:10 Dose: 40 mg Documented by: Ferrous Sulfate (Ferrous Sulfate) 325 mg PO DAILY [facility] Last Admin: 08/15/20 08:09 Dose: 325 mg Documented by: Fluticasone Propionate (Flonase) 0 gm NASBOTH ONETIME PRN PRN Reason: nasal congestion Last Admin: 08/01/20 00:34 Dose: 1 spray Documented by: Glucosamine/Chondroitin (Glucosamine-Chondroitin 500-400 Capsule) 1 cap PO BID [facility] Last Admin: 08/15/20 08:08 Dose: 1 cap Documented by: Hydrochlorothiazide (Hydrochlorothiazide) 12.5 mg PO DAILY [facility] Last Admin: 08/15/20 08:09 Dose: 12.5 mg Documented by: Losartan Potassium (Cozaar) 12.5 mg PO DAILY [facility] Last Admin: 08/15/20 08:09 Dose: 12.5 mg Documented by: Melatonin (Melatonin) 6 mg PO BEDTIME PRN PRN Reason: Insomnia Multivitamins/Minerals (Centrum) 1 tab PO DAILY [facility] Last Admin: 08/15/20 08:09 Dose: 1 tab Documented by: Omeprazole (Omeprazole) 40 mg PO ACBREAKFAST [facility] Last Admin: 08/15/20 06:30 Dose: Not Given Documented by: Sodium Chloride ([place] Nasal [place]) 0 ml LARRY Q4H PRN PRN Reason: nasal congestion Last Admin: 07/31/20 23:51 Dose: 1 spray Documented by: Discontinued Medications Enoxaparin Sodium (Lovenox) 40 mg SUBCUT BID [facility] Stop: 08/14/20 21:01 Last Admin: 08/14/20 20:34 Dose: 40 mg Documented by: Omeprazole (Omeprazole) 40 mg PO DAILY [facility] - Exam Quality Assessment: Supplemental Oxygen General: Alert, Oriented, Cooperative, No Acute Distress Lungs: Clear to Auscultation, Normal Respiratory Effort Cardiovascular: Regular Rate, Regular Rhythm, No Murmurs Extremities: No Pedal Edema Sepsis Event Note - Evaluation Sepsis Screening Result: No Definite Risk - Focused Exam Vital Signs: Vital Signs Temp Pulse Pulse Resp BP BP Pulse Ox 08/15/20 08:09 79 127/81 08/15/20 07:58 97.2 F 79 20 127/81 97 - Problem List Review Problem List Initiated/Reviewed/Updated: Yes - My Orders Last 24 Hours: My Active Orders 08/15/20 09:00 Enoxaparin [Lovenox] 40 mg SUBCUT Q24H - Assessment Assessment:: Hospital Problems: Weakness/deconditioning secondary to COVID 19 pneumonia. - Continue PT Hypoxemia - O2 to maintain sats >90%. Currently at 2L via NC - Albuterol inhaler q 4 hours PRN SOB - Duonebs q 6 hours PRN SOB HFrEF with cardiomyopathy, felt to be secondary to COVID, EF 30%, Grade 3/4 diastolic dysfunction - Outpatient cardiac cath recommended at discharge from [place] - ECHO 05/31/2020 at [place] - ECHO 07/21/2020, recovery of systolic function, now with EF 60-65% Hx NSTEMI Type 1 - ASA 81 mg PO daily - Clopidogrel 75 mg PO daily HTN - Carvedilol 12.5 mg PO BID - HCTZ 12.5 mg PO daily - Losartan 12.5 mg PO daily Hyperlipidemia - Atorvastatin 40 mg PO daily Hx of anemia secondary to gastric ulcer - Omeprazole 40 mg PO daily AM Moderate malnutrition - Regular diet as tolerated Difficulty Sleeping - Melatonin 6 mg PO qhs PRN sleep Nutritional supplements - Vit C 500 mg PO daily - Glucosamine/Chondriotin 1 cap PO BID - Calcium carbonate 600 mg PO daily - Vit B12 500 mcg PO daily DVT PPX: Enoxaparin 40 mg Subcut BID (dosing per [facility] discharge through 08/13/2020). Will decrease to 40 mg subcut daily starting 08/14/2020. CODE STATUS: Full code with trial of intubation x 2 weeks per advanced directiv e
[2020-08-15] MEDS: atorvaSTATin 40 MG Tab PO SCH (20:15)
[2020-08-16] MEDS: Omeprazole 20 MG Cap.CR PO SCH (07:36)
[2020-08-16] MEDS: Enoxaparin 40 MG/0.4 ML Syringe SUBCUT SCH (08:05)
[2020-08-16] MEDS: Clopidogrel 75 MG Tab PO SCH (08:06)
[2020-08-16] MEDS: Carvedilol 12.5 MG Tab PO SCH ×2 (08:06→17:54)
[2020-08-16] MEDS: Multivitamins with Minerals/Iron/Folic Acid/Lycopene Tab PO SCH (08:06)
[2020-08-16] MEDS: Losartan 25 MG Tab PO SCH (08:07)
[2020-08-16] MEDS: Cyanocobalamin (Vitamin B12) 500 MCG Tab PO SCH (08:08)
[2020-08-16] MEDS: Ascorbic Acid 500 MG Tab PO SCH (08:08)
[2020-08-16] MEDS: Cholecalciferol (Vitamin D3) 25 MCG Tab PO SCH (08:09)
[2020-08-16] MEDS: Chondroitin/Glucosamine Cap PO SCH ×2 (08:10→20:43)
[2020-08-16] MEDS: Hydrochlorothiazide 12.5 MG Cap PO SCH (08:10)
[2020-08-16] MEDS: Calcium Carbonate 600 MG Tab PO SCH (08:10)
[2020-08-16] MEDS: Benzonatate 100 MG Cap PO SCH ×2 (08:11→20:43)
[2020-08-16] MEDS: Ferrous Sulfate 325 MG Tab PO SCH (08:11)
[2020-08-16] MEDS: Aspirin 81 MG Tab.EC PO SCH (08:14)
[2020-08-16] MEDS: atorvaSTATin 40 MG Tab PO SCH (20:43)
[2020-08-17] MEDS: Omeprazole 20 MG Cap.CR PO SCH ×2 (06:24→06:29)
[2020-08-17] MEDS: Enoxaparin 40 MG/0.4 ML Syringe SUBCUT SCH (08:04)
[2020-08-17] MEDS: Multivitamins with Minerals/Iron/Folic Acid/Lycopene Tab PO SCH (08:05)
[2020-08-17] MEDS: Clopidogrel 75 MG Tab PO SCH (08:06)
[2020-08-17] MEDS: Ferrous Sulfate 325 MG Tab PO SCH (08:06)
[2020-08-17] MEDS: Benzonatate 100 MG Cap PO SCH ×2 (08:06→20:41)
[2020-08-17] MEDS: Aspirin 81 MG Tab.EC PO SCH (08:06)
[2020-08-17] MEDS: Carvedilol 12.5 MG Tab PO SCH ×2 (08:07→17:39)
[2020-08-17] MEDS: Cyanocobalamin (Vitamin B12) 500 MCG Tab PO SCH (08:07)
[2020-08-17] MEDS: Hydrochlorothiazide 12.5 MG Cap PO SCH (08:08)
[2020-08-17] MEDS: Calcium Carbonate 600 MG Tab PO SCH (08:08)
[2020-08-17] MEDS: Cholecalciferol (Vitamin D3) 25 MCG Tab PO SCH (08:08)
[2020-08-17] MEDS: Chondroitin/Glucosamine Cap PO SCH ×2 (08:09→20:41)
[2020-08-17] MEDS: Losartan 25 MG Tab PO SCH (08:09)
[2020-08-17] MEDS: Ascorbic Acid 500 MG Tab PO SCH (08:10)
[2020-08-17] MEDS: atorvaSTATin 40 MG Tab PO SCH (20:41)
[2020-08-18] MEDS: Omeprazole 20 MG Cap.CR PO SCH ×2 (05:56→06:29)
[2020-08-18] MEDS: Carvedilol 12.5 MG Tab PO SCH ×2 (07:40→17:43)
[2020-08-18] MEDS: Ascorbic Acid 500 MG Tab PO SCH (08:10)
[2020-08-18] MEDS: Aspirin 81 MG Tab.EC PO SCH (08:10)
[2020-08-18] MEDS: Benzonatate 100 MG Cap PO SCH ×2 (08:10→20:32)
[2020-08-18] MEDS: Multivitamins with Minerals/Iron/Folic Acid/Lycopene Tab PO SCH (08:10)
[2020-08-18] MEDS: Chondroitin/Glucosamine Cap PO SCH ×2 (08:10→20:32)
[2020-08-18] MEDS: Cyanocobalamin (Vitamin B12) 500 MCG Tab PO SCH (08:10)
[2020-08-18] MEDS: Calcium Carbonate 600 MG Tab PO SCH (08:10)
[2020-08-18] MEDS: Ferrous Sulfate 325 MG Tab PO SCH (08:10)
[2020-08-18] MEDS: Cholecalciferol (Vitamin D3) 25 MCG Tab PO SCH (08:13)
[2020-08-18] MEDS: Losartan 25 MG Tab PO SCH (08:14)
[2020-08-18] MEDS: Hydrochlorothiazide 12.5 MG Cap PO SCH (08:14)
[2020-08-18] MEDS: Clopidogrel 75 MG Tab PO SCH (08:14)
[2020-08-18] MEDS: Enoxaparin 40 MG/0.4 ML Syringe SUBCUT SCH (08:15)
[2020-08-18] MEDS: atorvaSTATin 40 MG Tab PO SCH (20:32)
[2020-08-19] MEDS: Fluticasone Propionate Nasal Spray 16 GM Bottle NASBOTH PRN (03:19)
[2020-08-19] MEDS: Sodium Chloride 0.65% Nasal Spray 45 ML Bottle NAS PRN (03:20)
[2020-08-19] MEDS: Acetaminophen 325 MG Tab PO PRN (03:37)
[2020-08-19] MEDS: Omeprazole 20 MG Cap.CR PO SCH (07:44)
[2020-08-19] MEDS: Carvedilol 12.5 MG Tab PO SCH ×2 (08:42→17:58)
[2020-08-19] MEDS: Cholecalciferol (Vitamin D3) 25 MCG Tab PO SCH (08:42)
[2020-08-19] MEDS: Losartan 25 MG Tab PO SCH (08:43)
[2020-08-19] MEDS: Calcium Carbonate 600 MG Tab PO SCH (08:43)
[2020-08-19] MEDS: Ferrous Sulfate 325 MG Tab PO SCH (08:43)
[2020-08-19] MEDS: Chondroitin/Glucosamine Cap PO SCH ×2 (08:43→20:07)
[2020-08-19] MEDS: Ascorbic Acid 500 MG Tab PO SCH (08:43)
[2020-08-19] MEDS: Hydrochlorothiazide 12.5 MG Cap PO SCH (08:43)
[2020-08-19] MEDS: Clopidogrel 75 MG Tab PO SCH (08:44)
[2020-08-19] MEDS: Benzonatate 100 MG Cap PO SCH ×2 (08:44→20:07)
[2020-08-19] MEDS: Aspirin 81 MG Tab.EC PO SCH (08:44)
[2020-08-19] MEDS: Cyanocobalamin (Vitamin B12) 500 MCG Tab PO SCH (08:44)
[2020-08-19] MEDS: Enoxaparin 40 MG/0.4 ML Syringe SUBCUT SCH (08:44)
[2020-08-19] MEDS: Multivitamins with Minerals/Iron/Folic Acid/Lycopene Tab PO SCH (08:44)
[2020-08-19] MEDS: atorvaSTATin 40 MG Tab PO SCH (20:07)
[2020-08-20] MEDS: Carvedilol 12.5 MG Tab PO SCH ×2 (07:38→17:37)
[2020-08-20] MEDS: Omeprazole 20 MG Cap.CR PO SCH (07:38)
[2020-08-20] MEDS: Enoxaparin 40 MG/0.4 ML Syringe SUBCUT SCH (08:35)
[2020-08-20] MEDS: Clopidogrel 75 MG Tab PO SCH (08:35)
[2020-08-20] MEDS: Ferrous Sulfate 325 MG Tab PO SCH (08:36)
[2020-08-20] MEDS: Cholecalciferol (Vitamin D3) 25 MCG Tab PO SCH (08:36)
[2020-08-20] MEDS: Hydrochlorothiazide 12.5 MG Cap PO SCH (08:36)
[2020-08-20] MEDS: Calcium Carbonate 600 MG Tab PO SCH (08:36)
[2020-08-20] MEDS: Ascorbic Acid 500 MG Tab PO SCH (08:36)
[2020-08-20] MEDS: Chondroitin/Glucosamine Cap PO SCH ×2 (08:36→20:14)
[2020-08-20] MEDS: Benzonatate 100 MG Cap PO SCH ×2 (08:36→20:14)
[2020-08-20] MEDS: Multivitamins with Minerals/Iron/Folic Acid/Lycopene Tab PO SCH (08:36)
[2020-08-20] MEDS: Aspirin 81 MG Tab.EC PO SCH (08:36)
[2020-08-20] MEDS: Cyanocobalamin (Vitamin B12) 500 MCG Tab PO SCH (08:36)
[2020-08-20] MEDS: Losartan 25 MG Tab PO SCH (08:37)
[2020-08-20] MEDS: atorvaSTATin 40 MG Tab PO SCH (20:14)
[2020-08-21] MEDS: Omeprazole 20 MG Cap.CR PO SCH (07:25)
[2020-08-21] MEDS: Carvedilol 12.5 MG Tab PO SCH ×2 (07:25→17:37)
[2020-08-21] MEDS: Clopidogrel 75 MG Tab PO SCH (08:26)
[2020-08-21] MEDS: Cholecalciferol (Vitamin D3) 25 MCG Tab PO SCH (08:26)
[2020-08-21] MEDS: Benzonatate 100 MG Cap PO SCH ×2 (08:27→20:47)
[2020-08-21] MEDS: Cyanocobalamin (Vitamin B12) 500 MCG Tab PO SCH (08:27)
[2020-08-21] MEDS: Ferrous Sulfate 325 MG Tab PO SCH (08:27)
[2020-08-21] MEDS: Calcium Carbonate 600 MG Tab PO SCH (08:27)
[2020-08-21] MEDS: Chondroitin/Glucosamine Cap PO SCH ×2 (08:27→20:47)
[2020-08-21] MEDS: Aspirin 81 MG Tab.EC PO SCH (08:27)
[2020-08-21] MEDS: Losartan 25 MG Tab PO SCH (08:27)
[2020-08-21] MEDS: Multivitamins with Minerals/Iron/Folic Acid/Lycopene Tab PO SCH (08:27)
[2020-08-21] MEDS: Ascorbic Acid 500 MG Tab PO SCH (08:27)
[2020-08-21] MEDS: Hydrochlorothiazide 12.5 MG Cap PO SCH (08:28)
[2020-08-21] MEDS: Enoxaparin 40 MG/0.4 ML Syringe SUBCUT SCH (08:28)
[2020-08-21] MEDS: Acetaminophen 325 MG Tab PO PRN ×2 (09:10→14:48)
[2020-08-21] MEDS ORDERED: Ibuprofen 600 MG Tab PO ONE (16:30)
[2020-08-21 18:30] LABS: ANION GAP 10.4 mmol/L (5-15); CHLORIDE,CL 101 mmol/L (98-107); SODIUM,NA 139 mmol/L (136-145)
[2020-08-21] MEDS: Ciprofloxacin 500 MG Tab PO SCH (20:46)
[2020-08-21] MEDS: atorvaSTATin 40 MG Tab PO SCH (20:47)
[2020-08-22] MEDS: Omeprazole 20 MG Cap.CR PO SCH (07:32)
[2020-08-22] MEDS: Cholecalciferol (Vitamin D3) 25 MCG Tab PO SCH (08:14)
[2020-08-22] MEDS: Cyanocobalamin (Vitamin B12) 500 MCG Tab PO SCH (08:15)
[2020-08-22] MEDS: Carvedilol 12.5 MG Tab PO SCH ×2 (08:15→17:54)
[2020-08-22] MEDS: Losartan 25 MG Tab PO SCH (08:16)
[2020-08-22] MEDS: Multivitamins with Minerals/Iron/Folic Acid/Lycopene Tab PO SCH (08:17)
[2020-08-22] MEDS: Calcium Carbonate 600 MG Tab PO SCH (08:17)
[2020-08-22] MEDS: Hydrochlorothiazide 12.5 MG Cap PO SCH (08:17)
[2020-08-22] MEDS: Chondroitin/Glucosamine Cap PO SCH ×2 (08:18→20:00)
[2020-08-22] MEDS: Benzonatate 100 MG Cap PO SCH ×2 (08:18→20:00)
[2020-08-22] MEDS: Ascorbic Acid 500 MG Tab PO SCH (08:18)
[2020-08-22] MEDS: Ciprofloxacin 500 MG Tab PO SCH ×2 (08:19→20:00)
[2020-08-22] MEDS: Ferrous Sulfate 325 MG Tab PO SCH (08:19)
[2020-08-22] MEDS: Aspirin 81 MG Tab.EC PO SCH (08:19)
[2020-08-22] MEDS: Clopidogrel 75 MG Tab PO SCH (08:19)
[2020-08-22] MEDS: Enoxaparin 40 MG/0.4 ML Syringe SUBCUT SCH (08:20)
[2020-08-22] MEDS: atorvaSTATin 40 MG Tab PO SCH (20:00)
[2020-08-23] MEDS: Fluticasone Propionate Nasal Spray 16 GM Bottle NASBOTH PRN (06:09)
[2020-08-23] MEDS: Carvedilol 12.5 MG Tab PO SCH ×2 (07:36→17:39)
[2020-08-23] MEDS: Omeprazole 20 MG Cap.CR PO SCH (07:36)
[2020-08-23] MEDS: Cyanocobalamin (Vitamin B12) 500 MCG Tab PO SCH (08:21)
[2020-08-23] MEDS: Enoxaparin 40 MG/0.4 ML Syringe SUBCUT SCH (08:21)
[2020-08-23] MEDS: Cholecalciferol (Vitamin D3) 25 MCG Tab PO SCH (08:21)
[2020-08-23] MEDS: Ferrous Sulfate 325 MG Tab PO SCH (08:25)
[2020-08-23] MEDS: Ciprofloxacin 500 MG Tab PO SCH ×2 (08:25→20:42)
[2020-08-23] MEDS: Losartan 25 MG Tab PO SCH (08:26)
[2020-08-23] MEDS: Hydrochlorothiazide 12.5 MG Cap PO SCH (08:26)
[2020-08-23] MEDS: Chondroitin/Glucosamine Cap PO SCH ×2 (08:27→20:42)
[2020-08-23] MEDS: Multivitamins with Minerals/Iron/Folic Acid/Lycopene Tab PO SCH (08:27)
[2020-08-23] MEDS: Ascorbic Acid 500 MG Tab PO SCH (08:27)
[2020-08-23] MEDS: Clopidogrel 75 MG Tab PO SCH (08:27)
[2020-08-23] MEDS: Benzonatate 100 MG Cap PO SCH ×2 (08:27→20:42)
[2020-08-23] MEDS: Calcium Carbonate 600 MG Tab PO SCH (08:27)
[2020-08-23] MEDS: Aspirin 81 MG Tab.EC PO SCH (08:28)
[2020-08-23] MEDS: atorvaSTATin 40 MG Tab PO SCH (20:42)
[2020-08-24] MEDS: Omeprazole 20 MG Cap.CR PO SCH ×2 (06:11→06:37)
[2020-08-24] MEDS: Carvedilol 12.5 MG Tab PO SCH ×2 (08:14→17:06)
[2020-08-24] MEDS: Ferrous Sulfate 325 MG Tab PO SCH (08:46)
[2020-08-24] MEDS: Losartan 25 MG Tab PO SCH (08:46)
[2020-08-24] MEDS: Calcium Carbonate 600 MG Tab PO SCH (08:46)
[2020-08-24] MEDS: Ciprofloxacin 500 MG Tab PO SCH ×2 (08:47→20:07)
[2020-08-24] MEDS: Cholecalciferol (Vitamin D3) 25 MCG Tab PO SCH (08:47)
[2020-08-24] MEDS: Hydrochlorothiazide 12.5 MG Cap PO SCH (08:47)
[2020-08-24] MEDS: Aspirin 81 MG Tab.EC PO SCH (08:47)
[2020-08-24] MEDS: Clopidogrel 75 MG Tab PO SCH (08:47)
[2020-08-24] MEDS: Benzonatate 100 MG Cap PO SCH ×2 (08:47→20:08)
[2020-08-24] MEDS: Enoxaparin 40 MG/0.4 ML Syringe SUBCUT SCH (08:48)
[2020-08-24] MEDS: Multivitamins with Minerals/Iron/Folic Acid/Lycopene Tab PO SCH (08:48)
[2020-08-24] MEDS: Ascorbic Acid 500 MG Tab PO SCH (08:48)
[2020-08-24] MEDS: Chondroitin/Glucosamine Cap PO SCH ×2 (08:48→20:08)
[2020-08-24] MEDS: Cyanocobalamin (Vitamin B12) 500 MCG Tab PO SCH (08:48)
--- NOTE | 2020-08-24 08:51 | PCM.PN ---
- General Info Date of Service: 08/24/20 Admission Dx/Problem (Free Text): Deconditioning s/p COVID pneumonia with acute hypoxemic respiratory failure. - Review of Systems Systems Review Comment:: Meryl is seen today on swingbed rounds. She is here recovering from COVID. She has been progressing well in therapy. She had some significant pain in her left buttock on 08/21 rated an 8/10 that caused difficulty walking. She had labs done which were largely unremarkable. She had a UA done suggestive of UTI and was started on ciprofloxacin 250 mg PO BID x 5 days. Urine culture is growing mixed kath. PT felt perhaps it was some sciatic nerve irritation and she received exercises to do for that and she is feeling much better. She has been able to ambulate at times without a cane or a walker. Her oxygen is at 2L via NC and she has O2 saturations between 97-99%. She uses 4L when she is doing therapy. There is a care conference scheduled for 11AM today (08/24). - Patient Data Vitals - Most Recent: Last Vital Signs Temp 96.6 F L 08/23/20 09:00 Pulse 89 08/24/20 08:14 Resp 20 08/23/20 09:00 BP 114/86 08/24/20 08:46 Pulse Ox 98 08/23/20 09:00 Weight - Most Recent: 176 lb 12.8 oz I&O - Last 24 Hours: Intake & Output 08/23/20 08/24/20 08/24/20 22:59 06:59 14:59 Intake Total 300 200 Balance 300 200 Mirza Results Last 24 Hours: Microbiology 08/21/20 19:20 Urine Culture - Final Urine, Voided MIXED KATH SUGGESTIVE OF CONTAMINATION. Med Orders - Current: Current Medications Acetaminophen (Tylenol) 650 mg PO Q4H PRN PRN Reason: Pain/Fever Last Admin: 08/21/20 14:48 Dose: 650 mg Documented by: Albuterol (Ventolin Hfa) 0 gm INH Q4H PRN PRN Reason: Shortness of Breath Albuterol/Ipratropium (Duoneb 3.0-0.5 Mg/3 Ml) 3 ml INH Q6H PRN PRN Reason: Shortness of Breath Ascorbic Acid (Vitamin C) 500 mg PO DAILY [facility] Last Admin: 08/24/20 08:48 Dose: 500 mg Documented by: Aspirin (Halfprin) 81 mg PO DAILY [facility] Last Admin: 08/24/20 08:47 Dose: 81 mg Documented by: Atorvastatin Calcium (Lipitor) 40 mg PO BEDTIME [facility] Last Admin: 08/23/20 20:42 Dose: 40 mg Documented by: Benzonatate (Tessalon Perles) 100 mg PO BID [facility] Last Admin: 08/24/20 08:47 Dose: 100 mg Documented by: Calcium Carbonate/Glycine (Calcium Carbonate) 600 mg PO DAILY [facility] Last Admin: 08/24/20 08:46 Dose: 600 mg Documented by: Carvedilol (Coreg) 12.5 mg PO BIDMEALS [facility] Last Admin: 08/24/20 08:14 Dose: 12.5 mg Documented by: Cholecalciferol (Vitamin D3) 50 mcg PO DAILY [facility] Last Admin: 08/24/20 08:47 Dose: 50 mcg Documented by: Ciprofloxacin (Ciprofloxacin Hcl) 250 mg PO BID [facility] Stop: 08/28/20 21:01 Last Admin: 08/24/20 08:47 Dose: 250 mg Documented by: Clopidogrel Bisulfate (Plavix) 75 mg PO DAILY [facility] Last Admin: 08/24/20 08:47 Dose: 75 mg Documented by: Cyanocobalamin (Vitamin B12) 500 mcg PO DAILY [facility] Last Admin: 08/24/20 08:48 Dose: 500 mcg Documented by: Enoxaparin Sodium (Lovenox) 40 mg SUBCUT Q24H [facility] Last Admin: 08/24/20 08:48 Dose: 40 mg Documented by: Ferrous Sulfate (Ferrous Sulfate) 325 mg PO DAILY [facility] Last Admin: 08/24/20 08:46 Dose: 325 mg Documented by: Fluticasone Propionate (Flonase) 0 gm NASBOTH ONETIME PRN PRN Reason: nasal congestion Last Admin: 08/23/20 06:09 Dose: 1 spray Documented by: Glucosamine/Chondroitin (Glucosamine-Chondroitin 500-400 Capsule) 1 cap PO BID [facility] Last Admin: 08/24/20 08:48 Dose: 1 cap Documented by: Hydrochlorothiazide (Hydrochlorothiazide) 12.5 mg PO DAILY [facility] Last Admin: 08/24/20 08:47 Dose: 12.5 mg Documented by: Losartan Potassium (Cozaar) 12.5 mg PO DAILY [facility] Last Admin: 08/24/20 08:46 Dose: 12.5 mg Documented by: Melatonin (Melatonin) 6 mg PO BEDTIME PRN PRN Reason: Insomnia Last Admin: 08/18/20 23:43 Dose: 6 mg Documented by: Multivitamins/Minerals (Centrum) 1 tab PO DAILY [facility] Last Admin: 08/24/20 08:48 Dose: 1 tab Documented by: Omeprazole (Omeprazole) 40 mg PO ACBREAKFAST [facility] Last Admin: 08/24/20 06:37 Dose: Not Given Documented by: Sodium Chloride ([place] Nasal [place]) 0 ml LARRY Q4H PRN PRN Reason: nasal congestion Last Admin: 08/19/20 03:20 Dose: 1 spray Documented by: Discontinued Medications Enoxaparin Sodium (Lovenox) 40 mg SUBCUT BID [facility] Stop: 08/14/20 21:01 Last Admin: 08/14/20 20:34 Dose: 40 mg Documented by: Ibuprofen (Motrin) 600 mg PO ONETIME [facility] Stop: 08/21/20 16:31 Last Admin: 08/21/20 16:46 Dose: 600 mg Documented by: Omeprazole (Omeprazole) 40 mg PO DAILY [facility] - Exam Quality Assessment: Supplemental Oxygen General: Alert, Oriented, Cooperative, No Acute Distress Lungs: Clear to Auscultation, Normal Respiratory Effort Cardiovascular: Regular Rate, Regular Rhythm, No Murmurs GI/Abdominal Exam: Normal Bowel Sounds Extremities: No Pedal Edema Sepsis Event Note - Evaluation Sepsis Screening Result: No Definite Risk - Focused Exam Vital Signs: Vital Signs Pulse BP 08/24/20 08:46 114/86 08/24/20 08:14 89 114/86 - Problem List Review Problem List Initiated/Reviewed/Updated: Yes - Assessment Assessment:: Hospital Problems: Weakness/deconditioning secondary to COVID 19 pneumonia. - Continue PT Hypoxemia - O2 to maintain sats >90%. Currently at 2L via [place], can consider decreasing to 1L 08/24 - Albuterol inhaler q 4 hours PRN SOB - Duonebs q 6 hours PRN SOB HFrEF with cardiomyopathy, felt to be secondary to COVID, EF 30%, Grade 3/4 diastolic dysfunction - Outpatient cardiac cath recommended at discharge from [facility] ECHO 05/31/2020 at [facility] ECHO 07/21/2020, recovery of systolic function, now with EF 60-65% Hx NSTEMI Type 1 - ASA 81 mg PO daily - Clopidogrel 75 mg PO daily HTN - Carvedilol 12.5 mg PO BID - HCTZ 12.5 mg PO daily - Losartan 12.5 mg PO daily Hyperlipidemia - Atorvastatin 40 mg PO daily Hx of anemia secondary to gastric ulcer - Omeprazole 40 mg PO daily AM Moderate malnutrition - Regular diet as tolerated Difficulty Sleeping - Melatonin 6 mg PO qhs PRN sleep Nutritional supplements - Vit C 500 mg PO daily - Glucosamine/Chondriotin 1 cap PO BID - Calcium carbonate 600 mg PO daily - Vit B12 500 mcg PO daily DVT PPX: Enoxaparin 40 mg Subcut BID (dosing per [facility] discharge through 08/13/2020). Will decrease to 40 mg subcut daily starting 08/14/2020. CODE STATUS: Full code with trial of intubation x 2 weeks per advanced direct ovidio
[2020-08-24] MEDS: atorvaSTATin 40 MG Tab PO SCH (20:08)
[2020-08-25] MEDS: Omeprazole 20 MG Cap.CR PO SCH (07:30)
[2020-08-25] MEDS: Cyanocobalamin (Vitamin B12) 500 MCG Tab PO SCH (08:23)
[2020-08-25] MEDS: Cholecalciferol (Vitamin D3) 25 MCG Tab PO SCH (08:23)
[2020-08-25] MEDS: Enoxaparin 40 MG/0.4 ML Syringe SUBCUT SCH (08:23)
[2020-08-25] MEDS: Calcium Carbonate 600 MG Tab PO SCH (08:23)
[2020-08-25] MEDS: Benzonatate 100 MG Cap PO SCH ×2 (08:24→20:18)
[2020-08-25] MEDS: Hydrochlorothiazide 12.5 MG Cap PO SCH (08:24)
[2020-08-25] MEDS: Ascorbic Acid 500 MG Tab PO SCH (08:25)
[2020-08-25] MEDS: Chondroitin/Glucosamine Cap PO SCH ×2 (08:25→20:18)
[2020-08-25] MEDS: Carvedilol 12.5 MG Tab PO SCH ×2 (08:25→17:25)
[2020-08-25] MEDS: Ciprofloxacin 500 MG Tab PO SCH ×2 (08:26→20:18)
[2020-08-25] MEDS: Multivitamins with Minerals/Iron/Folic Acid/Lycopene Tab PO SCH (08:26)
[2020-08-25] MEDS: Aspirin 81 MG Tab.EC PO SCH (08:26)
[2020-08-25] MEDS: Clopidogrel 75 MG Tab PO SCH (08:26)
[2020-08-25] MEDS: Ferrous Sulfate 325 MG Tab PO SCH (08:27)
[2020-08-25] MEDS: Losartan 25 MG Tab PO SCH (08:29)
[2020-08-25] MEDS: atorvaSTATin 40 MG Tab PO SCH (20:18)
[2020-08-26] MEDS: Sodium Chloride 0.65% Nasal Spray 45 ML Bottle NAS PRN (02:14)
[2020-08-26] MEDS: Fluticasone Propionate Nasal Spray 16 GM Bottle NASBOTH PRN (02:16)
[2020-08-26] MEDS: Omeprazole 20 MG Cap.CR PO SCH (07:50)
[2020-08-26] MEDS: Aspirin 81 MG Tab.EC PO SCH (08:45)
[2020-08-26] MEDS: Hydrochlorothiazide 12.5 MG Cap PO SCH (08:45)
[2020-08-26] MEDS: Chondroitin/Glucosamine Cap PO SCH ×2 (08:45→20:28)
[2020-08-26] MEDS: Benzonatate 100 MG Cap PO SCH ×2 (08:45→20:28)
[2020-08-26] MEDS: Multivitamins with Minerals/Iron/Folic Acid/Lycopene Tab PO SCH (08:45)
[2020-08-26] MEDS: Cholecalciferol (Vitamin D3) 25 MCG Tab PO SCH (08:45)
[2020-08-26] MEDS: Cyanocobalamin (Vitamin B12) 500 MCG Tab PO SCH (08:45)
[2020-08-26] MEDS: Calcium Carbonate 600 MG Tab PO SCH (08:45)
[2020-08-26] MEDS: Clopidogrel 75 MG Tab PO SCH (08:45)
[2020-08-26] MEDS: Carvedilol 12.5 MG Tab PO SCH ×2 (08:46→18:08)
[2020-08-26] MEDS: Ascorbic Acid 500 MG Tab PO SCH (08:46)
[2020-08-26] MEDS: Losartan 25 MG Tab PO SCH (08:46)
[2020-08-26] MEDS: Ciprofloxacin 500 MG Tab PO SCH ×2 (08:46→20:28)
[2020-08-26] MEDS: Ferrous Sulfate 325 MG Tab PO SCH (08:46)
[2020-08-26] MEDS: Enoxaparin 40 MG/0.4 ML Syringe SUBCUT SCH (08:47)
[2020-08-26] MEDS: atorvaSTATin 40 MG Tab PO SCH (20:28)
[2020-08-27] MEDS: Omeprazole 20 MG Cap.CR PO SCH (06:37)
[2020-08-27] MEDS: Multivitamins with Minerals/Iron/Folic Acid/Lycopene Tab PO SCH (08:22)
[2020-08-27] MEDS: Cholecalciferol (Vitamin D3) 25 MCG Tab PO SCH (08:22)
[2020-08-27] MEDS: Ferrous Sulfate 325 MG Tab PO SCH (08:22)
[2020-08-27] MEDS: Calcium Carbonate 600 MG Tab PO SCH (08:22)
[2020-08-27] MEDS: Clopidogrel 75 MG Tab PO SCH (08:23)
[2020-08-27] MEDS: Ascorbic Acid 500 MG Tab PO SCH (08:23)
[2020-08-27] MEDS: Chondroitin/Glucosamine Cap PO SCH ×2 (08:23→20:45)
[2020-08-27] MEDS: Aspirin 81 MG Tab.EC PO SCH (08:23)
[2020-08-27] MEDS: Cyanocobalamin (Vitamin B12) 500 MCG Tab PO SCH (08:24)
[2020-08-27] MEDS: Benzonatate 100 MG Cap PO SCH ×2 (08:24→20:45)
[2020-08-27] MEDS: Hydrochlorothiazide 12.5 MG Cap PO SCH (08:25)
[2020-08-27] MEDS: Losartan 25 MG Tab PO SCH (08:25)
[2020-08-27] MEDS: Ciprofloxacin 500 MG Tab PO SCH ×2 (08:26→20:45)
[2020-08-27] MEDS: Carvedilol 12.5 MG Tab PO SCH ×2 (08:27→18:40)
[2020-08-27] MEDS: Enoxaparin 40 MG/0.4 ML Syringe SUBCUT SCH (08:29)
[2020-08-27] MEDS: atorvaSTATin 40 MG Tab PO SCH (20:45)
[2020-08-27] MEDS: Acetaminophen 325 MG Tab PO PRN (21:32)
[2020-08-28] MEDS: Omeprazole 20 MG Cap.CR PO SCH (06:32)
[2020-08-28] MEDS: Calcium Carbonate 600 MG Tab PO SCH (08:04)
[2020-08-28] MEDS: Carvedilol 12.5 MG Tab PO SCH ×2 (08:04→18:14)
[2020-08-28] MEDS: Benzonatate 100 MG Cap PO SCH ×2 (08:05→21:02)
[2020-08-28] MEDS: Multivitamins with Minerals/Iron/Folic Acid/Lycopene Tab PO SCH (08:05)
[2020-08-28] MEDS: Aspirin 81 MG Tab.EC PO SCH (08:06)
[2020-08-28] MEDS: Clopidogrel 75 MG Tab PO SCH (08:06)
[2020-08-28] MEDS: Cholecalciferol (Vitamin D3) 25 MCG Tab PO SCH (08:06)
[2020-08-28] MEDS: Ascorbic Acid 500 MG Tab PO SCH (08:06)
[2020-08-28] MEDS: Chondroitin/Glucosamine Cap PO SCH ×2 (08:06→21:03)
[2020-08-28] MEDS: Ciprofloxacin 500 MG Tab PO SCH ×2 (08:08→21:03)
[2020-08-28] MEDS: Losartan 25 MG Tab PO SCH (08:09)
[2020-08-28] MEDS: Hydrochlorothiazide 12.5 MG Cap PO SCH (08:10)
[2020-08-28] MEDS: Ferrous Sulfate 325 MG Tab PO SCH (08:10)
[2020-08-28] MEDS: Cyanocobalamin (Vitamin B12) 500 MCG Tab PO SCH (08:11)
[2020-08-28] MEDS: Enoxaparin 40 MG/0.4 ML Syringe SUBCUT SCH (08:11)
[2020-08-28] MEDS: atorvaSTATin 40 MG Tab PO SCH (21:03)
[2020-08-29] MEDS: Acetaminophen 325 MG Tab PO PRN ×2 (03:27→22:00)
[2020-08-29] MEDS: Sodium Chloride 0.65% Nasal Spray 45 ML Bottle NAS PRN (03:33)
[2020-08-29] MEDS: Fluticasone Propionate Nasal Spray 16 GM Bottle NASBOTH PRN (03:34)
[2020-08-29] MEDS: Carvedilol 12.5 MG Tab PO SCH ×2 (07:43→17:56)
[2020-08-29] MEDS: Omeprazole 20 MG Cap.CR PO SCH (07:43)
[2020-08-29] MEDS: Enoxaparin 40 MG/0.4 ML Syringe SUBCUT SCH (09:21)
[2020-08-29] MEDS: Benzonatate 100 MG Cap PO SCH ×2 (09:22→20:20)
[2020-08-29] MEDS: Ferrous Sulfate 325 MG Tab PO SCH (09:22)
[2020-08-29] MEDS: Aspirin 81 MG Tab.EC PO SCH (09:22)
[2020-08-29] MEDS: Cholecalciferol (Vitamin D3) 25 MCG Tab PO SCH (09:22)
[2020-08-29] MEDS: Calcium Carbonate 600 MG Tab PO SCH (09:22)
[2020-08-29] MEDS: Hydrochlorothiazide 12.5 MG Cap PO SCH (09:22)
[2020-08-29] MEDS: Losartan 25 MG Tab PO SCH (09:23)
[2020-08-29] MEDS: Ascorbic Acid 500 MG Tab PO SCH (09:23)
[2020-08-29] MEDS: Multivitamins with Minerals/Iron/Folic Acid/Lycopene Tab PO SCH (09:23)
[2020-08-29] MEDS: Cyanocobalamin (Vitamin B12) 500 MCG Tab PO SCH (09:23)
[2020-08-29] MEDS: Chondroitin/Glucosamine Cap PO SCH ×2 (09:23→20:20)
[2020-08-29] MEDS: Clopidogrel 75 MG Tab PO SCH (09:23)
--- NOTE | 2020-08-29 09:25 | PCM.PN ---
- General Info Date of Service: 08/29/20 Admission Dx/Problem (Free Text): Deconditioning s/p COVID pneumonia with acute hypoxemic respiratory failure. - Review of Systems Systems Review Comment:: Meryl is seen today on swingbed rounds. She had a good weekend. She was actually able to go outside for a bit this weekend but didn't bring a coat with her and so was not out long but she enjoyed the fresh air. She has no concerns today. There was a care conference last week and anticipated discharge is in early September to home. - Patient Data Vitals - Most Recent: Last Vital Signs Temp 97.8 F 08/28/20 08:20 Pulse 80 08/29/20 07:43 Resp 22 H 08/28/20 08:20 BP 119/80 08/29/20 09:23 Pulse Ox 96 08/28/20 08:20 Weight - Most Recent: 175 lb 11.2 oz I&O - Last 24 Hours: Intake & Output 08/28/20 08/29/20 08/29/20 22:59 06:59 14:59 Intake Total 400 100 Output Total 300 Balance 100 100 Med Orders - Current: Current Medications Acetaminophen (Tylenol) 650 mg PO Q4H PRN PRN Reason: Pain/Fever Last Admin: 08/29/20 03:27 Dose: 650 mg Documented by: Albuterol (Ventolin Hfa) 0 gm INH Q4H PRN PRN Reason: Shortness of Breath Albuterol/Ipratropium (Duoneb 3.0-0.5 Mg/3 Ml) 3 ml INH Q6H PRN PRN Reason: Shortness of Breath Ascorbic Acid (Vitamin C) 500 mg PO DAILY [facility] Last Admin: 08/29/20 09:23 Dose: 500 mg Documented by: Aspirin (Halfprin) 81 mg PO DAILY [facility] Last Admin: 08/29/20 09:22 Dose: 81 mg Documented by: Atorvastatin Calcium (Lipitor) 40 mg PO BEDTIME [facility] Last Admin: 08/28/20 21:03 Dose: 40 mg Documented by: Benzonatate (Tessalon Perles) 100 mg PO BID [facility] Last Admin: 08/29/20 09:22 Dose: 100 mg Documented by: Calcium Carbonate/Glycine (Calcium Carbonate) 600 mg PO DAILY [facility] Last Admin: 08/29/20 09:22 Dose: 600 mg Documented by: Carvedilol (Coreg) 12.5 mg PO BIDMEALS [facility] Last Admin: 08/29/20 07:43 Dose: 12.5 mg Documented by: Cholecalciferol (Vitamin D3) 50 mcg PO DAILY [facility] Last Admin: 08/29/20 09:22 Dose: 50 mcg Documented by: Clopidogrel Bisulfate (Plavix) 75 mg PO DAILY [facility] Last Admin: 08/29/20 09:23 Dose: 75 mg Documented by: Cyanocobalamin (Vitamin B12) 500 mcg PO DAILY [facility] Last Admin: 08/29/20 09:23 Dose: 500 mcg Documented by: Enoxaparin Sodium (Lovenox) 40 mg SUBCUT Q24H [facility] Last Admin: 08/29/20 09:21 Dose: 40 mg Documented by: Ferrous Sulfate (Ferrous Sulfate) 325 mg PO DAILY [facility] Last Admin: 08/29/20 09:22 Dose: 325 mg Documented by: Fluticasone Propionate (Flonase) 0 gm [place] ONETIME PRN PRN Reason: nasal congestion Last Admin: 08/29/20 03:34 Dose: 1 spray Documented by: Glucosamine/Chondroitin (Glucosamine-Chondroitin 500-400 Capsule) 1 cap PO BID [facility] Last Admin: 08/29/20 09:23 Dose: 1 cap Documented by: Hydrochlorothiazide (Hydrochlorothiazide) 12.5 mg PO DAILY [facility] Last Admin: 08/29/20 09:22 Dose: 12.5 mg Documented by: Losartan Potassium (Cozaar) 12.5 mg PO DAILY [facility] Last Admin: 08/29/20 09:23 Dose: 12.5 mg Documented by: Melatonin (Melatonin) 6 mg PO BEDTIME PRN PRN Reason: Insomnia Last Admin: 08/18/20 23:43 Dose: 6 mg Documented by: Multivitamins/Minerals (Centrum) 1 tab PO DAILY [facility] Last Admin: 08/29/20 09:23 Dose: 1 tab Documented by: Omeprazole (Omeprazole) 40 mg PO ACBREAKFAST [facility] Last Admin: 08/29/20 07:43 Dose: 40 mg Documented by: Sodium Chloride ([place] Nasal [place]) 0 ml LARRY Q4H PRN PRN Reason: nasal congestion Last Admin: 08/29/20 03:33 Dose: 1 spray Documented by: Discontinued Medications Ciprofloxacin (Ciprofloxacin Hcl) 250 mg PO BID [facility] Stop: 08/28/20 21:01 Last Admin: 02/21/21 21:03 Dose: 250 mg Documented by: Enoxaparin Sodium (Lovenox) 40 mg SUBCUT BID [facility] Stop: 08/14/20 21:01 Last Admin: 08/14/20 20:34 Dose: 40 mg Documented by: Ibuprofen (Motrin) 600 mg PO ONETIME ONE Stop: 08/21/20 16:31 Last Admin: 08/21/20 16:46 Dose: 600 mg Documented by: Omeprazole (Omeprazole) 40 mg PO DAILY [facility] - Exam Quality Assessment: Supplemental Oxygen General: Alert, Oriented, Cooperative, No Acute Distress Lungs: Clear to Auscultation, Normal Respiratory Effort Cardiovascular: Regular Rate, Regular Rhythm, No Murmurs - Patient Data Result Diagrams: 08/21/20 16:50 08/21/20 16:50 Sepsis Event Note - Evaluation Sepsis Screening Result: No Definite Risk - Focused Exam Vital Signs: Vital Signs Pulse BP 08/29/20 09:23 119/80 08/29/20 07:43 80 119/80 - Problem List Review Problem List Initiated/Reviewed/Updated: Yes - Assessment Assessment:: Hospital Problems: Weakness/deconditioning secondary to COVID 19 pneumonia. - Continue PT Hypoxemia - O2 to maintain sats >90%. Currently at 2L via NC, can consider decreasing to 1L 08/24 - Albuterol inhaler q 4 hours PRN SOB - Duonebs q 6 hours PRN SOB HFrEF with cardiomyopathy, felt to be secondary to COVID, EF 30%, Grade 3/4 diastolic dysfunction - Outpatient cardiac cath recommended at discharge from [facility] ECHO 05/31/2020 at [facility] ECHO 07/21/2020, recovery of systolic function, now with EF 60-65% Hx NSTEMI Type 1 - ASA 81 mg PO daily - Clopidogrel 75 mg PO daily HTN - Carvedilol 12.5 mg PO BID - HCTZ 12.5 mg PO daily - Losartan 12.5 mg PO daily Hyperlipidemia - Atorvastatin 40 mg PO daily Hx of anemia secondary to gastric ulcer - Omeprazole 40 mg PO daily AM Moderate malnutrition - Regular diet as tolerated Difficulty Sleeping - Melatonin 6 mg PO qhs PRN sleep Nutritional supplements - Vit C 500 mg PO daily - Glucosamine/Chondriotin 1 cap PO BID - Calcium carbonate 600 mg PO daily - Vit B12 500 mcg PO daily DVT PPX: Enoxaparin 40 mg Subcut BID (dosing per [facility] discharge through 08/13/2020). Will decrease to 40 mg subcut daily starting 08/14/2020. CODE STATUS: Full code with trial of intubation x 2 weeks per advanced directive
[2020-08-29] MEDS: atorvaSTATin 40 MG Tab PO SCH (20:19)
[2020-08-30] MEDS: Omeprazole 20 MG Cap.CR PO SCH (07:24)
[2020-08-30] MEDS: Carvedilol 12.5 MG Tab PO SCH ×2 (07:25→17:21)
[2020-08-30] MEDS: Cyanocobalamin (Vitamin B12) 500 MCG Tab PO SCH (08:38)
[2020-08-30] MEDS: Cholecalciferol (Vitamin D3) 25 MCG Tab PO SCH (08:38)
[2020-08-30] MEDS: Enoxaparin 40 MG/0.4 ML Syringe SUBCUT SCH (08:38)
[2020-08-30] MEDS: Multivitamins with Minerals/Iron/Folic Acid/Lycopene Tab PO SCH (08:38)
[2020-08-30] MEDS: Calcium Carbonate 600 MG Tab PO SCH (08:39)
[2020-08-30] MEDS: Losartan 25 MG Tab PO SCH (08:39)
[2020-08-30] MEDS: Ferrous Sulfate 325 MG Tab PO SCH (08:39)
[2020-08-30] MEDS: Benzonatate 100 MG Cap PO SCH ×2 (08:39→20:35)
[2020-08-30] MEDS: Aspirin 81 MG Tab.EC PO SCH (08:39)
[2020-08-30] MEDS: Hydrochlorothiazide 12.5 MG Cap PO SCH (08:39)
[2020-08-30] MEDS: Clopidogrel 75 MG Tab PO SCH (08:39)
[2020-08-30] MEDS: Chondroitin/Glucosamine Cap PO SCH ×2 (08:39→20:35)
[2020-08-30] MEDS: Ascorbic Acid 500 MG Tab PO SCH (08:39)
[2020-08-30] MEDS: atorvaSTATin 40 MG Tab PO SCH (20:35)
[2020-08-31] MEDS: Omeprazole 20 MG Cap.CR PO SCH (07:38)
[2020-08-31] MEDS: Cyanocobalamin (Vitamin B12) 500 MCG Tab PO SCH (08:19)
[2020-08-31] MEDS: Cholecalciferol (Vitamin D3) 25 MCG Tab PO SCH (08:19)
[2020-08-31] MEDS: Aspirin 81 MG Tab.EC PO SCH (08:19)
[2020-08-31] MEDS: Ferrous Sulfate 325 MG Tab PO SCH (08:19)
[2020-08-31] MEDS: Benzonatate 100 MG Cap PO SCH ×2 (08:20→21:13)
[2020-08-31] MEDS: Hydrochlorothiazide 12.5 MG Cap PO SCH (08:20)
[2020-08-31] MEDS: Losartan 25 MG Tab PO SCH (08:20)
[2020-08-31] MEDS: Clopidogrel 75 MG Tab PO SCH (08:20)
[2020-08-31] MEDS: Ascorbic Acid 500 MG Tab PO SCH (08:20)
[2020-08-31] MEDS: Calcium Carbonate 600 MG Tab PO SCH (08:20)
[2020-08-31] MEDS: Multivitamins with Minerals/Iron/Folic Acid/Lycopene Tab PO SCH (08:20)
[2020-08-31] MEDS: Carvedilol 12.5 MG Tab PO SCH ×2 (08:20→18:26)
[2020-08-31] MEDS: Chondroitin/Glucosamine Cap PO SCH ×2 (08:20→21:13)
[2020-08-31] MEDS: Enoxaparin 40 MG/0.4 ML Syringe SUBCUT SCH (08:23)
[2020-08-31] MEDS: Acetaminophen 325 MG Tab PO PRN ×2 (12:02→21:13)
[2020-08-31] MEDS: atorvaSTATin 40 MG Tab PO SCH (21:13)
[2020-09-01] MEDS: Fluticasone Propionate Nasal Spray 16 GM Bottle NASBOTH PRN (02:11)
[2020-09-01] MEDS: Sodium Chloride 0.65% Nasal Spray 45 ML Bottle NAS PRN (02:12)
[2020-09-01] MEDS: Omeprazole 20 MG Cap.CR PO SCH ×2 (05:55→06:29)
[2020-09-01] MEDS: Aspirin 81 MG Tab.EC PO SCH (08:09)
[2020-09-01] MEDS: Carvedilol 12.5 MG Tab PO SCH ×2 (08:09→18:14)
[2020-09-01] MEDS: Hydrochlorothiazide 12.5 MG Cap PO SCH (08:09)
[2020-09-01] MEDS: Cholecalciferol (Vitamin D3) 25 MCG Tab PO SCH (08:09)
[2020-09-01] MEDS: Clopidogrel 75 MG Tab PO SCH (08:09)
[2020-09-01] MEDS: Ascorbic Acid 500 MG Tab PO SCH (08:10)
[2020-09-01] MEDS: Multivitamins with Minerals/Iron/Folic Acid/Lycopene Tab PO SCH (08:10)
[2020-09-01] MEDS: Cyanocobalamin (Vitamin B12) 500 MCG Tab PO SCH (08:10)
[2020-09-01] MEDS: Ferrous Sulfate 325 MG Tab PO SCH (08:10)
[2020-09-01] MEDS: Chondroitin/Glucosamine Cap PO SCH ×2 (08:10→20:30)
[2020-09-01] MEDS: Losartan 25 MG Tab PO SCH (08:11)
[2020-09-01] MEDS: Benzonatate 100 MG Cap PO SCH ×2 (08:11→20:30)
[2020-09-01] MEDS: Calcium Carbonate 600 MG Tab PO SCH (08:11)
[2020-09-01] MEDS: Enoxaparin 40 MG/0.4 ML Syringe SUBCUT SCH (08:11)
[2020-09-01] MEDS: atorvaSTATin 40 MG Tab PO SCH (20:30)
[2020-09-01] MEDS: Acetaminophen 325 MG Tab PO PRN (20:34)
[2020-09-02] MEDS: Omeprazole 20 MG Cap.CR PO SCH ×2 (06:07→06:38)
[2020-09-02] MEDS: Carvedilol 12.5 MG Tab PO SCH ×2 (07:26→17:25)
[2020-09-02] MEDS: Calcium Carbonate 600 MG Tab PO SCH (09:00)
[2020-09-02] MEDS: Ferrous Sulfate 325 MG Tab PO SCH (09:00)
[2020-09-02] MEDS: Hydrochlorothiazide 12.5 MG Cap PO SCH (09:00)
[2020-09-02] MEDS: Benzonatate 100 MG Cap PO SCH ×2 (09:01→20:19)
[2020-09-02] MEDS: Chondroitin/Glucosamine Cap PO SCH ×2 (09:01→20:19)
[2020-09-02] MEDS: Aspirin 81 MG Tab.EC PO SCH (09:01)
[2020-09-02] MEDS: Losartan 25 MG Tab PO SCH (09:01)
[2020-09-02] MEDS: Clopidogrel 75 MG Tab PO SCH (09:01)
[2020-09-02] MEDS: Ascorbic Acid 500 MG Tab PO SCH (09:02)
[2020-09-02] MEDS: Cholecalciferol (Vitamin D3) 25 MCG Tab PO SCH (09:02)
[2020-09-02] MEDS: Cyanocobalamin (Vitamin B12) 500 MCG Tab PO SCH (09:02)
[2020-09-02] MEDS: Enoxaparin 40 MG/0.4 ML Syringe SUBCUT SCH (09:02)
[2020-09-02] MEDS: Multivitamins with Minerals/Iron/Folic Acid/Lycopene Tab PO SCH (09:02)
[2020-09-02] MEDS: atorvaSTATin 40 MG Tab PO SCH (20:19)
[2020-09-03] MEDS: Omeprazole 20 MG Cap.CR PO SCH ×2 (06:02→06:46)
[2020-09-03] MEDS: Carvedilol 12.5 MG Tab PO SCH ×2 (08:04→18:15)
[2020-09-03] MEDS: Enoxaparin 40 MG/0.4 ML Syringe SUBCUT SCH (08:04)
[2020-09-03] MEDS: Hydrochlorothiazide 12.5 MG Cap PO SCH (08:05)
[2020-09-03] MEDS: Cholecalciferol (Vitamin D3) 25 MCG Tab PO SCH (08:05)
[2020-09-03] MEDS: Chondroitin/Glucosamine Cap PO SCH ×2 (08:05→20:18)
[2020-09-03] MEDS: Multivitamins with Minerals/Iron/Folic Acid/Lycopene Tab PO SCH (08:05)
[2020-09-03] MEDS: Cyanocobalamin (Vitamin B12) 500 MCG Tab PO SCH (08:05)
[2020-09-03] MEDS: Calcium Carbonate 600 MG Tab PO SCH (08:05)
[2020-09-03] MEDS: Ascorbic Acid 500 MG Tab PO SCH (08:05)
[2020-09-03] MEDS: Ferrous Sulfate 325 MG Tab PO SCH (08:06)
[2020-09-03] MEDS: Aspirin 81 MG Tab.EC PO SCH (08:06)
[2020-09-03] MEDS: Benzonatate 100 MG Cap PO SCH ×2 (08:06→20:18)
[2020-09-03] MEDS: Losartan 25 MG Tab PO SCH (08:06)
[2020-09-03] MEDS: Clopidogrel 75 MG Tab PO SCH (08:07)
[2020-09-03] MEDS: atorvaSTATin 40 MG Tab PO SCH (20:18)
[2020-09-04] MEDS: Omeprazole 20 MG Cap.CR PO SCH ×2 (06:13→06:30)
[2020-09-04] MEDS: Multivitamins with Minerals/Iron/Folic Acid/Lycopene Tab PO SCH (08:31)
[2020-09-04] MEDS: Enoxaparin 40 MG/0.4 ML Syringe SUBCUT SCH (08:31)
[2020-09-04] MEDS: Hydrochlorothiazide 12.5 MG Cap PO SCH (08:31)
[2020-09-04] MEDS: Carvedilol 12.5 MG Tab PO SCH ×2 (08:31→17:20)
[2020-09-04] MEDS: Cholecalciferol (Vitamin D3) 25 MCG Tab PO SCH (08:31)
[2020-09-04] MEDS: Cyanocobalamin (Vitamin B12) 500 MCG Tab PO SCH (08:31)
[2020-09-04] MEDS: Clopidogrel 75 MG Tab PO SCH (08:32)
[2020-09-04] MEDS: Benzonatate 100 MG Cap PO SCH ×2 (08:32→21:13)
[2020-09-04] MEDS: Losartan 25 MG Tab PO SCH (08:32)
[2020-09-04] MEDS: Calcium Carbonate 600 MG Tab PO SCH (08:32)
[2020-09-04] MEDS: Ascorbic Acid 500 MG Tab PO SCH (08:32)
[2020-09-04] MEDS: Aspirin 81 MG Tab.EC PO SCH (08:32)
[2020-09-04] MEDS: Ferrous Sulfate 325 MG Tab PO SCH (08:32)
[2020-09-04] MEDS: Chondroitin/Glucosamine Cap PO SCH ×2 (08:32→21:13)
[2020-09-04] MEDS: atorvaSTATin 40 MG Tab PO SCH (21:13)
[2020-09-05] MEDS: Sodium Chloride 0.65% Nasal Spray 45 ML Bottle NAS PRN (02:49)
[2020-09-05] MEDS: Fluticasone Propionate Nasal Spray 16 GM Bottle NASBOTH PRN (02:50)
[2020-09-05] MEDS: Omeprazole 20 MG Cap.CR PO SCH (06:28)
[2020-09-05] MEDS: Losartan 25 MG Tab PO SCH (08:38)
[2020-09-05] MEDS: Ferrous Sulfate 325 MG Tab PO SCH (08:39)
[2020-09-05] MEDS: Multivitamins with Minerals/Iron/Folic Acid/Lycopene Tab PO SCH (08:39)
[2020-09-05] MEDS: Carvedilol 12.5 MG Tab PO SCH ×2 (08:39→17:26)
[2020-09-05] MEDS: Cholecalciferol (Vitamin D3) 25 MCG Tab PO SCH (08:39)
[2020-09-05] MEDS: Ascorbic Acid 500 MG Tab PO SCH (08:39)
[2020-09-05] MEDS: Cyanocobalamin (Vitamin B12) 500 MCG Tab PO SCH (08:39)
[2020-09-05] MEDS: Chondroitin/Glucosamine Cap PO SCH ×2 (08:39→20:02)
[2020-09-05] MEDS: Clopidogrel 75 MG Tab PO SCH (08:40)
[2020-09-05] MEDS: Aspirin 81 MG Tab.EC PO SCH (08:40)
[2020-09-05] MEDS: Hydrochlorothiazide 12.5 MG Cap PO SCH (08:40)
[2020-09-05] MEDS: Benzonatate 100 MG Cap PO SCH ×2 (08:40→20:02)
[2020-09-05] MEDS: Calcium Carbonate 600 MG Tab PO SCH (08:40)
[2020-09-05] MEDS: Enoxaparin 40 MG/0.4 ML Syringe SUBCUT SCH (08:40)
[2020-09-05] MEDS: atorvaSTATin 40 MG Tab PO SCH (20:02)
[2020-09-06] MEDS: Omeprazole 20 MG Cap.CR PO SCH (07:18)
[2020-09-06] MEDS: Multivitamins with Minerals/Iron/Folic Acid/Lycopene Tab PO SCH (08:20)
[2020-09-06] MEDS: Clopidogrel 75 MG Tab PO SCH (08:20)
[2020-09-06] MEDS: Carvedilol 12.5 MG Tab PO SCH ×2 (08:21→17:31)
[2020-09-06] MEDS: Losartan 25 MG Tab PO SCH (08:21)
[2020-09-06] MEDS: Calcium Carbonate 600 MG Tab PO SCH (08:21)
[2020-09-06] MEDS: Cholecalciferol (Vitamin D3) 25 MCG Tab PO SCH (08:21)
[2020-09-06] MEDS: Hydrochlorothiazide 12.5 MG Cap PO SCH (08:22)
[2020-09-06] MEDS: Aspirin 81 MG Tab.EC PO SCH (08:22)
[2020-09-06] MEDS: Ferrous Sulfate 325 MG Tab PO SCH (08:22)
[2020-09-06] MEDS: Cyanocobalamin (Vitamin B12) 500 MCG Tab PO SCH (08:22)
[2020-09-06] MEDS: Chondroitin/Glucosamine Cap PO SCH ×2 (08:22→20:06)
[2020-09-06] MEDS: Benzonatate 100 MG Cap PO SCH ×2 (08:22→20:06)
[2020-09-06] MEDS: Ascorbic Acid 500 MG Tab PO SCH (08:22)
[2020-09-06] MEDS: Enoxaparin 40 MG/0.4 ML Syringe SUBCUT SCH (08:26)
[2020-09-06] MEDS: atorvaSTATin 40 MG Tab PO SCH (20:06)
[2020-09-07] MEDS: Omeprazole 20 MG Cap.CR PO SCH (06:59)
[2020-09-07] MEDS: Carvedilol 12.5 MG Tab PO SCH ×2 (08:19→17:24)
[2020-09-07] MEDS: Calcium Carbonate 600 MG Tab PO SCH (08:20)
[2020-09-07] MEDS: Multivitamins with Minerals/Iron/Folic Acid/Lycopene Tab PO SCH (08:21)
[2020-09-07] MEDS: Losartan 25 MG Tab PO SCH (08:21)
[2020-09-07] MEDS: Ferrous Sulfate 325 MG Tab PO SCH (08:21)
[2020-09-07] MEDS: Chondroitin/Glucosamine Cap PO SCH ×2 (08:23→20:10)
[2020-09-07] MEDS: Hydrochlorothiazide 12.5 MG Cap PO SCH (08:23)
[2020-09-07] MEDS: Aspirin 81 MG Tab.EC PO SCH (08:23)
[2020-09-07] MEDS: Cyanocobalamin (Vitamin B12) 500 MCG Tab PO SCH (08:24)
[2020-09-07] MEDS: Clopidogrel 75 MG Tab PO SCH (08:24)
[2020-09-07] MEDS: Cholecalciferol (Vitamin D3) 25 MCG Tab PO SCH (08:24)
[2020-09-07] MEDS: Benzonatate 100 MG Cap PO SCH ×2 (08:24→20:10)
[2020-09-07] MEDS: Ascorbic Acid 500 MG Tab PO SCH (08:24)
[2020-09-07] MEDS: Enoxaparin 40 MG/0.4 ML Syringe SUBCUT SCH (08:25)
--- NOTE | 2020-09-07 13:05 | PN ---
09/07/2020 PATIENT NAME: CONSUELO LYNN SUBJECTIVE: The patient has been admitted and cared for in swing bed due to deconditioning, status post COVID pneumonia with acute hypoxemic respiratory failure. The patient is doing well. She is ambulating with physical therapy and doing very well. She has been playing organ for the staff here and this has been enjoyable for her as well as us. She has been able to go outside when the weather has allowed. She is quite anxious about going home. So many things have changed in her medications that she is concerned. I reassured her that we would be outlining everything in detail for her prior to going home. Her oxygen was checked on room air this morning when the patient was awake and at rest on room air for 20 minutes. O2 saturation was 86%. O2 was placed at 1 L per nasal cannula with O2 saturation noted to be 93% on 1 L after 3 minutes. The patient was taken for a walk on 3 L of oxygen per nasal cannula with the patient able to walk for 6 minutes with O2 sats between 94% and 95%. The patient needs oxygen ordered to reflect O2 1 L per nasal cannula at rest and 3 L per nasal cannula with activity. As stated before, her lung issues were non-existent prior to her COVID infection. Her hypoxemia is related to her COVID pneumonia. OBJECTIVE: VITAL SIGNS: On exam, temperature is 97, pulse 87, respirations 20, blood pressure 114/81, O2 saturation is 94% on 1 L of oxygen. SKIN: Warm and dry to touch. CARDIAC: S1, S2 normal. Rate and rhythm are regular. No murmur, click, or gallop is auscultated. LUNGS: Sound clear in all jimenes for me today without wheezes, rales, or rhonchi. ABDOMEN: Soft, nontender. Bowel sounds present in all 4 quadrants. EXTREMITIES: There is no pedal edema. 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 IMPRESSION: 1. Hypoxemia. She has required oxygen at 1 L per nasal cannula at rest and 3 L per nasal cannula with activity to keep her O2 sats above 90%. She continues with an albuterol inhaler as well as DuoNebs. 2. Heart failure with reduced ejection fraction (HFrEF) with cardiomyopathy felt to be secondary to coronavirus disease as is her hypoxemia. Ejection fraction is 30%. She does have a grade 3/4 diastolic dysfunction. She may need a cardiac catheterization as an outpatient. She had a repeat echo on 07/21/2020, which showed a recovery of systolic function now with ejection fraction of 60% to 65%. 3. History of [id number] myocardial infarction, type 1. She is on aspirin as well as clopidogrel. 4. Hypertension. She is taking a combination of carvedilol, hydrochlorothiazide, and losartan. 5. Hyperlipidemia. She is on statin therapy. 6. History of anemia secondary to gastric ulcer. She is on gastric protection with PPI, namely omeprazole. 7. Moderate malnutrition. She has been eating a regular diet as tolerated. 8. Difficulty sleeping. She has been using melatonin. 9. Nutritional supplements of vitamin C, calcium, vitamin B12, as well as glucosamine chondroitin. PLAN: The plan is to discharge the patient tomorrow with home health. /[id number]/MODL
[2020-09-07] MEDS: atorvaSTATin 40 MG Tab PO SCH (20:10)
[2020-09-08] MEDS: Omeprazole 20 MG Cap.CR PO SCH (06:45)
[2020-09-08] MEDS: Multivitamins with Minerals/Iron/Folic Acid/Lycopene Tab PO SCH (08:43)
[2020-09-08] MEDS: Cholecalciferol (Vitamin D3) 25 MCG Tab PO SCH (08:43)
[2020-09-08] MEDS: Ferrous Sulfate 325 MG Tab PO SCH (08:44)
[2020-09-08] MEDS: Clopidogrel 75 MG Tab PO SCH (08:44)
[2020-09-08] MEDS: Carvedilol 12.5 MG Tab PO SCH (08:44)
[2020-09-08] MEDS: Ascorbic Acid 500 MG Tab PO SCH (08:44)
[2020-09-08] MEDS: Benzonatate 100 MG Cap PO SCH (08:44)
[2020-09-08] MEDS: Aspirin 81 MG Tab.EC PO SCH (08:44)
[2020-09-08] MEDS: Chondroitin/Glucosamine Cap PO SCH (08:44)
[2020-09-08] MEDS: Cyanocobalamin (Vitamin B12) 500 MCG Tab PO SCH (08:44)
[2020-09-08] MEDS: Calcium Carbonate 600 MG Tab PO SCH (08:44)
[2020-09-08] MEDS: Hydrochlorothiazide 12.5 MG Cap PO SCH (08:44)
[2020-09-08] MEDS: Enoxaparin 40 MG/0.4 ML Syringe SUBCUT SCH (08:45)
[2020-09-08] MEDS: Losartan 25 MG Tab PO SCH (08:45)
[2020-09-08 08:46] VITALS: PULSE 90
[2020-09-08 10:31] VITALS: BP 108/66
--- NOTE | 2020-09-09 08:46 | DISCH ---
DISCHARGE DIAGNOSIS: Impression: 1. Hypoxemia. She has required oxygen at 1 L per nasal cannula at rest and 3 L per nasal cannula with activity, keep her O2 sats above 90%. She continues with albuterol inhaler as well as DuoNeb. 2. Heart failure with reduced ejection fraction (HFrEF) with cardiomyopathy felt to be secondary to coronavirus disease as well as hypoxemia. Ejection fraction is 30%. That was during her hospitalization. She does have grade 3 to 4 diastolic dysfunction. She may need a cardiac catheterization as an outpatient. She had a repeat echocardiogram on 07/21/2020, which showed a recover of systolic function now with ejection fraction of 60% to 65%. 3. History of non-ST segment elevation myocardial infarction type 1. She is on clopidogrel as well as aspirin. 4. Hypertension. She is taking a combination of carvedilol, hydrochlorothiazide, as well as losartan. 5. Hyperlipidemia, on statin. 6. She has a history of anemia secondary to gastric ulcer. She is on gastric protection with omeprazole. 7. Moderate malnutrition, this is improved as she has been eating a regular diet as tolerated. 8. Difficulty sleeping, she has been using melatonin in the hospital, however, does not want to use it at home. 9. Nutritional supplements of vitamin C, calcium, vitamin B12, as well as glucosamine chondroitin. The patient will be going home with home health, the name is [facility]. She will be going home on oxygen therapy through [facility]. HOSPITAL COURSE: The patient was admitted and cared for in swing bed due to deconditioning, status post COVID pneumonia with acute hypoxemic respiratory failure. The patient does not have any underlying lung disease. She has been requiring oxygen during her hospital stay. Her oxygen saturation on room air is 86%. O2 on 1 L per nasal cannula at rest noted to be 93% after 3 minutes. After the patient walks on 3 L of oxygen per nasal cannula with the patient able to walk for 6 minutes, O2 saturation between 94% and 95%. The patient needs oxygen ordered to reflect O2 of 1 L per nasal cannula at rest and 3 L per nasal cannula with activity. As stated before, her lung issues were non-existent prior to her COVID infection. Her hypoxemia is related to her COVID pneumonia. PHYSICAL EXAM ON DISCHARGE: VITAL SIGNS: Stable. SKIN: Warm and dry to touch. CARDIAC: Reveals S1, S2 to be normal. Rate and rhythm are regular. No murmur, click, or gallop is auscultated. LUNGS: Clear in all jimenes without wheezes, rales, or rhonchi. ABDOMEN: Soft, nontender. Bowel sounds present in all 4 quadrants. EXTREMITIES: There is no pedal edema. She does have chronic foot drop in the left foot, which is congenital. FOLLOW-UP RECOMMENDATIONS: This is a [id number] encounter for home health. The patient will need the following services: Nursing, physical therapy, occupational therapy, as well as medication assistance. She is a potential for rehospitalization related to an extended illness, she was hospitalized with COVID related pneumonia and multiple comorbidities. She will need health teaching for medication management. She needs to develop an in-home therapy program. The patient will need education regarding her chronic disease states. She will need in-home safety assessment and instruction. She will need education in regard to new need for oxygen therapy as she has not had this before. She will need to improve her strength and endurance. She does not have any wounds to be cared for. She will need home management of multiple disease processes. Support for homebound status includes limited or decreased strength and endurance due to extended illness and muscle weakness. She may experience shortness of breath with minimal activities or at rest. She is oxygen dependent. Her gait is quite steady actually, however, she is a fall risk due to multiple comorbidities. She is at risk for exacerbation of disease. She may be at risk for infection, namely pneumonia. /[id number]/MODL
== END 2020-09-08 14:25 | disposition home health service (06) | DRG 947 ==
LOC: KA.MS 11:31
PROVIDERS: ADMIT Internal Medicine; ATTEND Internal Medicine
DX: R53.81 Other malaise (principal); I21.4 Non-ST elevation (NSTEMI) myocardial infarction; I42.9 Cardiomyopathy, unspecified; I50.22 Chronic systolic (congestive) heart failure; E44.0 Moderate protein-calorie malnutrition; B94.8 Sequelae of other specified infectious and parasitic diseases; Z20.822 Contact with and (suspected) exposure to COVID-19; I11.0 Hypertensive heart disease with heart failure; D50.9 Iron deficiency anemia, unspecified; E55.9 Vitamin D deficiency, unspecified; E78.00 Pure hypercholesterolemia, unspecified; K21.9 Gastro-esophageal reflux disease without esophagitis; R09.02 Hypoxemia; E78.5 Hyperlipidemia, unspecified; K25.9 Gastric ulcer, unspecified as acute or chronic, without hemorrhage or perforation; M76.01 Gluteal tendinitis, right hip; Z87.01 Personal history of pneumonia (recurrent); Z99.81 Dependence on supplemental oxygen; Z68.31 Body mass index [BMI] 31.0-31.9, adult
CPT/HCPCS: 36415; 80053; 81001; 85025; 87086; 93306; 97110-GP; 97161-GP; 97537-GP; A9270-GY; J1650; U0002